=== PATIENT | female | born 1995 | race Hispanic/Latino ===

== ENCOUNTER 2021-03-25 19:14 | Emergency (ER) | payer BC ==
--- OUTSIDE RECORDS SUMMARY | 2021-03-25 19:17 | XMS REPORT | Continuity of Care Document ---
:1995 Author Organization [facility] t Address [address] [place] [address] Care Team Providers Name Role Phone Radiology Attending Clinician Unavailable Problems This patient has no known problems. Allergies, Adverse Reactions, Alerts This patient has no known allergies or adverse reactions. Medications This patient has no known medications. Procedures This patient has no known procedures. Encounters Start End Encounter Admission Attending Care Care Encounter Source Date/Time Date/Time Type Type Clinicians Facility Department ID 2021-02-05 2021-02-05 [facility] Radiology [facility] [id number] 17:15:00 23:59:00 Encounter [place] [id number] [place] [id number] [place] [id number] 2020-03-25 2020-03-25 Emergency E [facility]BL [id number] [facility]BL 16:40:00 16:40:00 2018-01-18 2018-01-18 [facility] [id number] Access 00:00:00 00:00:00 H, PROVIDER Oscar warren 2018-01-05 2018-01-05 [facility] [id number] Access 00:00:00 00:00:00 H, PROVIDER Oscar warren 2017-12-27 2017-12-27 [facility] [id number] Access 00:00:00 00:00:00 H, PROVIDER Oscar warren 2017-09-19 2017-09-19 [facility] [id number] Access 00:00:00 00:00:00 H, PROVIDER Oscar warren 2017-03-11 2017-03-11 [facility] [id number] Access 00:00:00 00:00:00 H, PROVIDER Oscar warren 2017-02-23 2017-02-23 [facility] [id number] Access 00:00:00 00:00:00 H, PROVIDER Oscar warren 2017-02-22 2017-02-22 [facility] [id number] Access 00:00:00 00:00:00 H, PROVIDER Oscar warren Results This patient has no known results.
[2021-03-25 20:13] LABS: Urine Blood Negative (Negative); Urine Glucose Negative (Negative); Urine Protein Negative (Negative)
[2021-03-25 20:23] LABS: Absolute Lymphocytes (CBC) 3.7 K/uL (0.7-4.9); Basophils % 0.3 % (0-1.3); Hematocrit 32.6 % (36.0-45.0); Lymphocytes % 27.7 % (15.3-44.8); MPV 6.8 fL (7.6-11.3); RBC Red Blood Cell Count 3.86 M/uL (3.86-4.86)
[2021-03-25 20:39] LABS: ALT/SGPT 18 U/L (12-78); AST/SGOT 16 U/L (15-37); Albumin 2.4 g/dL (3.4-5.0); Alkaline Phosphatase 56 U/L (45-117); BUN Blood Urea Nitrogen 3 mg/dL (7-18); Bicarbonate 21 mmol/L (21-32); Bilirubin Direct < 0.1 mg/dL (0-0.2); Bilirubin Total 0.1 mg/dL (0.2-1.0); Glucose Level 88 mg/dL (74-106); Lipase 52 U/L (73-393); Potassium 3.5 mmol/L (3.5-5.1); Protein, Total 6.6 g/dL (6.4-8.2); Sodium Level 138 mmol/L (136-145)
--- NOTE | 2021-03-25 20:53 | RAD REPORT ---
EXAM DESCRIPTION: US - Abdomen Exam Limited - 03/25/2021 8:31 pm CLINICAL HISTORY: ABD PAIN COMPARISON: No comparisons FINDINGS: The gallbladder demonstrates no gallstones. No pericholecystic fluid or gallbladder wall t hickening. The common bile duct is normal measuring 2 mm. The liver demonstrates no findings of intrahepatic biliary dilatation. IMPRESSION: Unremarkable examination.
[2021-03-25 21:03] LABS: Urine Bacteria <20 /HPF (<20); Urine RBC <5 /HPF (NONE SEEN)
--- NOTE | 2021-03-25 21:03 | ER ---
Nurse's Notes [facility] Name: Mariya Albert Age: 25 yrs Sex: Female : 1995 Arrival Date: 03/25/2021 Time: 19:17 Bed 13 Private MD: Diagnosis: Upper abdominal pain, unspecified Presentation: 03/25 19:35 Chief complaint: Patient states: 14 wks . RUQ pain x 3 days. Now pain radiates ca1 to the back. Reports N/V that is not like nausea. Denies diarrhea. Coronavirus screen: Client denies travel out of the [place] in the last 14 days. nausea, vomiting. Client presents with at least one sign or symptom that may indicate coronavirus-19. Standard/surgical mask placed on the client. Provider contacted for isolation considerations. Ebola Screen: Patient negative for fever greater than or equal to 101.5 degrees Fahrenheit, and additional compatible Ebola Virus Disease symptoms Patient denies exposure to infectious person. Patient denies travel to an Ebola-affected area in the 21 days before illness onset. No symptoms or risks identified at this time. Initial Sepsis Screen: Does the patient meet any 2 criteria? No. Patient's initial sepsis screen is negative. Does the patient have a suspected source of infection? No. Patient's initial sepsis screen is negative. Risk Assessment: Do you want to hurt yourself or someone else? Patient reports no desire to harm self or others. Onset of symptoms was March 25, 2021. 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 - Social history:: Smoking status: Patient denies any tobacco usage or history of. - Family history:: not pertinent. - Hospitalizations: : No recent hospitalization is reported. Screenin:09 Abuse screen: Denies threats or abuse. Denies injuries from another. Nutritional ad5 screening: No deficits noted. Tuberculosis screening: No symptoms or risk factors identified. Fall Risk None identified. Assessment: 20:09 General: Appears uncomfortable, Behavior is calm, cooperative, appropriate for age. ad5 Pain: Complains of pain in right upper quadrant. Neuro: Level of Consciousness is awake, alert, obeys commands, Oriented to person, place, time. Cardiovascular: Capillary refill < 3 seconds Patient's skin is warm and dry. Rhythm is regular. Respiratory: Airway is patent Respiratory effort is even, unlabored, Respiratory pattern is regular, symmetrical. GI: Abdomen is round Reports upper abdominal pain, nausea, pt reports RUQ pain x 3 days, denies exacerbating or relieving factors; est 14 wks gestation, reports nausea at baseline. : No deficits noted. No signs and/or symptoms were reported regarding the genitourinary system. Derm: Skin is pink, warm \T\ dry. 21:19 Reassessment: Patient appears in no apparent distress at this time. Patient and/or ad5 family updated on plan of care and expected duration. Pain level reassessed. Patient is alert, oriented x 3, equal unlabored respirations, skin warm/dry/pink. Vital Signs: 19:35 BP 112 / 72; Pulse 91; Resp 18 S; Temp 97.8(TE); Pulse Ox 99% on R/A; Weight 66.68 kg ca1 (R); Height 4 ft. 9 in. (144.78 cm) (R); Pain 6/10; 20:12 BP 131 / 58; Pulse 101; Resp 18 S; Pulse Ox 98% on R/A; ad5 21:20 BP 120 / 75; Pulse 88; Resp 16 S; Pulse Ox 98% on R/A; ad5 19:35 Body Mass Index 31.81 (66.68 kg, 144.78 cm) ca1 ED Course: 19:17 Patient arrived in ED. bp1 19:43 Junior Kam MD is Attending Physician. rn 19:44 Triage completed. ca1 19:44 Arm band placed on right wrist. ca1 19:49 Terrence Muhammad is Primary Nurse. ad5 20:09 US Abdomen Limited Sent. ad5 20:11 No provider procedures requiring assistance completed. Initial lab(s) drawn, by ri, ad5 sent to lab. Urine collected: clean catch specimen, clear. Inserted saline lock: 20 gauge in right antecubital area, using aseptic technique. Blood collected. 20:12 Patient has correct armband on for positive identification. Placed in gown. Bed in low ad5 position. Call light in reach. Side rails up X 1. Pulse ox on. NIBP on. Door closed. Noise minimized. Warm blanket given. 20:31 US Abdomen Limited In Process Unspecified. EDMS 21:21 IV discontinued, intact, bleeding controlled, No redness/swelling at site. Pressure ad5 dressing applied. Administered Medications: 21:19 Drug: GI Cocktail without - (Maalox Suspension 30 ml, Lidocaine Liquid 2 % 15 ad5 ml) Route: PO; Outcome: 21:03 Discharge ordered by . rn 21:20 Discharged to home ambulatory, with significant other. ad5 21:20 Condition: stable 21:20 Discharge instructions given to patient, Instructed on discharge instructions, follow up and referral plans. medication usage, Demonstrated understanding of instructions, follow-up care, medications. 21:21 Patient left the ED. ad5 Signatures: Dispatcher [employer] EDMS Junior Kam MD MD rn Gricelda, NIC Tapia RN Tiki Martinez Andrea ad5 Corrections: (The following items were deleted from the chart) 20:11 20:09 GI: Abdomen is round Reports upper abdominal pain, nausea, pt reports RUQ pain x ad5 3 days, denies exacerbating or relieving factors; est 17 wks gestation, reports nausea at baseline ad5
--- NOTE | 2021-03-25 21:04 | EDPHYS ---
Physician Documentation [facility] Name: Mariya Albert Age: 25 yrs Sex: Female : 1995 Arrival Date: 03/25/2021 Time: 19:17 Bed 13 Private MD: ED Physician Junior Kam HPI: 03/25 20:55 This 25 yrs old Female presents to ER via Ambulatory with complaints of Flank rn Pain, Nausea/Vomiting, Back Pain, +14 Weeks Preg.. 20:55 The patient presents with abdominal pain in the epigastric area, in the right upper rn quadrant. 20:55 Onset: The symptoms/episode began/occurred 3 day(s) ago. The symptoms do not radiate. rn Associated signs and symptoms: Pertinent positives: nausea and vomiting, Pertinent negatives: blood in stools, fever, shortness of breath. The symptoms are described as crampy, intermittent. Modifying factors: The symptoms are alleviated by nothing, the symptoms are aggravated by touching the area. Severity of pain: At its worst the pain was moderate in the emergency department the pain is unchanged. The patient has not experienced similar symptoms in the past. Reports 14 weeks , experiencing RUQ abd pain and nausea/vomiting for 3 days now, no fever, no blood in emesis, no vaginal bleeding or lower abd pain. No known hx of gallstones. Not worse with eating or food. . 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 - Social history:: Smoking status: Patient denies any tobacco usage or history of. - Family history:: not pertinent. - Hospitalizations: : No recent hospitalization is reported. ROS: 20:55 Constitutional: Negative for fever, chills, and weight loss, Eyes: Negative for injury, rn pain, redness, and discharge, Neck: Negative for injury, pain, and swelling, Cardiovascular: Negative for chest pain, palpitations, and edema, Respiratory: Negative for shortness of breath, cough, wheezing, and pleuritic chest pain, Abdomen/GI: +RUQ abd pain and nausea/vomiting Back: Negative for injury and pain, : Negative for injury, bleeding, discharge, and swelling, MS/Extremity: Negative for injury and deformity, Skin: Negative for injury, rash, and discoloration, Neuro: Negative for headache, weakness, numbness, tingling, and seizure. Exam: 20:55 Constitutional: This is a well developed, well nourished patient who is awake, alert, rn and in no acute distress. Head/Face: Normocephalic, atraumatic. Cardiovascular: Regular rate and rhythm. No pulse deficits. Respiratory: No increased work of breathing, no retractions or nasal flaring. Abdomen/GI: soft, mild RUQ tenderness, no epigastric tenderness, no RLQ tenderness, no peritoneal signs. Skin: Warm, dry with normal turgor. Normal color with no rashes, no lesions, and no evidence of cellulitis. MS/ Extremity: Pulses equal, no cyanosis. Neurovascular intact. Full, normal range of motion. Equal circumference. Neuro: Awake and alert, GCS 15 Vital Signs: 19:35 BP 112 / 72; Pulse 91; Resp 18 S; Temp 97.8(TE); Pulse Ox 99% on R/A; Weight 66.68 kg ca1 (R); Height 4 ft. 9 in. (144.78 cm) (R); Pain 6/10; 20:12 BP 131 / 58; Pulse 101; Resp 18 S; Pulse Ox 98% on R/A; ad5 21:20 BP 120 / 75; Pulse 88; Resp 16 S; Pulse Ox 98% on R/A; ad5 19:35 Body Mass Index 31.81 (66.68 kg, 144.78 cm) ca1 MDM: 19:43 Patient medically screened. rn 20:58 Differential diagnosis: cholecystitis, Cholelithiasis, gastritis, gastroesophageal rn reflux disease, non-specific abd pain, pancreatitis, Peptic Ulcer Disease, urinary tract infection. Data reviewed: vital signs, nurses notes, lab test result(s), radiologic studies, ultrasound, and as a result, I will discharge patient. Counseling: I had a detailed discussion with the patient and/or guardian regarding: the historical points, exam findings, and any diagnostic results supporting the discharge/admit diagnosis, lab results, radiology results, the need for outpatient follow up, to return to the emergency department if symptoms worsen or persist or if there are any questions or concerns that arise at home. Response to treatment: the patient's symptoms have mildly improved after treatment, and as a result, I will discharge patient. Special discussion: I discussed with the patient/guardian in detail that at this point there is no indication for admission to the hospital. It is understood, however, that if the symptoms persist or worsen the patient needs to return immediately for re-evaluation. Based on the history and exam findings, there is no indication for further emergent testing or inpatient evaluation. I discussed with the patient/guardian the need to see the OB Gyne specialist for further evaluation of the symptoms. ED course: Return precautions given, u/s neg for acute gallbladder pathology, talked to her about limitations of evaluation during and if symptoms worsen will need MRI abdomen or repeat u/s of gallbladder. For now recommend TUMs and diet modification.. 03/25 19:50 Order name: Basic Metabolic Panel; Complete Time: 20:49 03/25 19:50 Order name: CBC with Diff; Complete Time: 20:49 03/25 19:50 Order name: Hepatic Function; Complete Time: 20:49 03/25 19:50 Order name: Lipase; Complete Time: 20:49 03/25 19:50 Order name: Urine Microscopic Only; Complete Time: 21:04 03/25 20:13 Order name: Urine Dipstick-Ancillary; Complete Time: 20:49 EDMS 03/25 19:50 Order name: IV Saline Lock; Complete Time: 20: 03/25 19:50 Order name: Labs collected and sent; Complete Time: 20:09 03/25 19:50 Order name: US Abdomen Limited; Complete Time: 21:04 03/25 19:50 Order name: Urine Dipstick-Ancillary (obtain specimen) 03/25 20:15 Order name: Urine --Ancillary (enter results) 03/25 20:16 Order name: Urine --Ancillary; Complete Time: 20:49 EDMS Administered Medications: 21:19 Drug: GI Cocktail without - (Maalox Suspension 30 ml, Lidocaine Liquid 2 % 15 ad5 ml) Route: PO; Disposition: 03/25/21 21:03 Discharged to Home. Impression: Upper abdominal pain, unspecified. - Condition is Stable. - Discharge Instructions: Abdominal Pain, Adult, Abdominal Pain During , Pain Without a Known Cause. - Medication Reconciliation Form, Thank You Letter, Antibiotic Education, Prescription Opioid Use form. - Follow up: Private Physician; When: As needed; Reason: Recheck today's complaints, Re-evaluation by your physician. - Problem is new. - Symptoms have improved. Signatures: Dispatcher [employer] EDMS Junior Kam MD MD rn Acob, NIC Tapia RN Terrence Boyle ad5 Corrections: (The following items were deleted from the chart) 21: 21:03 03/25/2021 21:03 Discharged to Home. Impression: Upper abdominal pain, ad5 unspecified. Condition is Stable. Forms are Medication Reconciliation Form, Thank You Letter, Antibiotic Education, Prescription Opioid Use. Follow up: Private Physician; When: As needed; Reason: Recheck today's complaints, Re-evaluation by your physician. Problem is new. Symptoms have improved. rn
[2021-03-25] MEDS ORDERED: MAGNES/ALUMIN/SIMET 30ML UCUP ONE (21:34)
[2021-03-25] MEDS ORDERED: LIDOCAINE VISCOUS 2% SOLN 15 ML UDC ONE (21:34)
[2021-03-25 21:47] VITALS: TEMP 97.8
[2021-03-25 21:49] VITALS: O2SAT 98
[2021-03-25 21:50] VITALS: BP 120/75
== END 2021-03-25 21:21 | disposition home or self-care (01) ==
LOC: ER 19:14
DX: O26.891 Other specified pregnancy related conditions, first trimester (principal); Z3A.14 14 weeks gestation of pregnancy; Z88.0 Allergy status to penicillin
CPT/HCPCS: 36415; 76705; 80048; 80076; 81003; 81015; 81025; 83690; 85025

== ENCOUNTER 2023-03-01 13:37 | Emergency (ER) | payer BC ==
--- OUTSIDE RECORDS SUMMARY | 2023-03-01 13:50 | XMS REPORT | Continuity of Care Document ---
:1995 Author Organization [facility] t Address [address] [facility] Juan Pablo. [address] [place] [address] Care Team Providers Name Role Phone PCP, PATIENT DOES NOT HAVE A Primary Care Physician Unavaila ble Only, Ang Db Test Attending Clinician Unavailable Prince Shen MD Attending Clinician PRINCE SHEN Attending Clinician Unavailable Roxana Espinal Attending Clinician Unavailable Radiology Attending Clinician Unavailable RADIOLOGY Attending Clinician Unavailable ROXANA OREILLY Attending Clinician Unavailable PATTI ACOSTA Attending Clinician [phone] [facility], PROVIDER Attending Clinician Unavailable NURSE, NURSE Attending Clinician Unavailable EVELINA MOHAN Attending Clinician [phone] Roxana Espinal Admitting Clinician Unavailable Physician, No Primary or Family Admitting Clinician Unavaila ble Payers Payer Name Policy Type Policy Number Effective Date Expiration Date S ource Problems This patient has no known problems. Allergies, Adverse Reactions, Alerts Allergy Allergy Status Severity Reaction(s) Onset Inactive Treating Comm ents Source Name Type Date Date Clinician [place] DA Active U RASH 2020-10 [facility] 1-29 [facility] [place] DA Active U 2020-10 [facility] 0-08 [facility] [place] DA Active U RASH 2020-10 [facility] 0-08 [facility] [place] NO KNOWN Drug Active [facility] [place] [facility] Social History Social Habit Start Date Stop Date Quantity Comments Source Exposure to 2022-04-16 2022-04-26 Yes [facility] SARS-CoV-2 (event) 00:00:00 10:14:00 Medica l Branch Sex Assigned At [address] [facility] [place] 00:00:00 00:00:00 Medical Branch Smoking Status Start Date Stop Date Source Tobacco smoking consumption [facility] Medical unknown Branch Medications Ordered Filled Start Stop Current Ordering Indication Dosage Frequency Signature Comments Components Source Medication Medication Date Date Medication? Clinician (SIG) Name Name Miryam Calles No Insert 1 Acc essH 380A 380 3-29 Intrauteri ealth square mm 00:00: ne Device intrauterin 00 by e device Intrauteri ne route 1 for 10 years lovastatin No take 1 Acces sH 40 mg 6-02 tablet by ealth tablet 00:00: Oral route 00 with the evening meal 1 time per day for cholestero l telmisartan No take 1 [facility] 40 5-17 tablet by ealth mg-hydrochl 00:00: Oral route orothiazide 00 1 time per 12.5 mg day FROM tablet ALICIA Immunizations Ordered Filled Immunization Date Status Comments Sour e Immunization Name Name SARS-COV-2 COVID-19 2021-01-02 Completed Unive rsity of PFIZER VACCINE 00:00:00 [facility] SARS-COV-2 COVID-19 2020-12-12 Completed Unive rsity of PFIZER VACCINE 00:00:00 [facility] Vital Signs Vital Name Observation Time Observation Value Comments Source Body height 2018-01-18 09:08:00 55.00 [in_us] [facility] Patient Body Weight 2018-01-18 09:08:00 138.00 [lb_av] [facility] Systolic 2018-01-18 09:08:00 120 mm[Hg] [facility] Diastolic 2018-01-18 09:08:00 78 mm[Hg] [facility] Heart Beat 2018-01-18 09:08:00 75 /min [facility] Body Temperature 2018-01-18 09:08:00 98.20 [degF] [facility] Respiratory Rate 2018-01-18 09:08:00 18 /min [facility] Body mass index 2018-01-18 09:08:00 32.10 kg/m2 [facility] Body height 2018-01-05 09:14:00 55.00 [in_us] [facility] Body Weight 2018-01-05 09:14:00 134.60 [lb_av] [facility] Systolic 2018-01-05 09:14:00 103 mm[Hg] [facility] Diastolic 2018-01-05 09:14:00 51 mm[Hg] [facility] Heart Beat 2018-01-05 09:14:00 67 /min [facility] Body Temperature 2018-01-05 09:14:00 97.20 [degF] [facility] Respiratory Rate 2018-01-05 09:14:00 16 /min [facility] Body mass index 2018-01-05 09:14:00 31.30 kg/m2 [facility] Body height 2017-12-27 11:21:00 55.00 [in_us] [facility] Patient Body Weight 2017-12-27 11:21:00 137.60 [lb_av] [facility] Systolic 2017-12-27 11:21:00 104 mm[Hg] [facility] Diastolic 2017-12-27 11:21:00 58 mm[Hg] [facility] Heart Beat 2017-12-27 11:21:00 75 /min [facility] Body Temperature 2017-12-27 11:21:00 98.80 [degF] [facility] Respiratory Rate 2017-12-27 11:21:00 18 /min [facility] Body mass index 2017-12-27 11:21:00 32.00 kg/m2 [facility] Body height 2017-03-11 10:02:00 55.00 [in_us] [facility] Patient Body Weight 2017-03-11 10:02:00 136.00 [lb_av] [facility] Systolic 2017-03-11 10:02:00 107 mm[Hg] [facility] Diastolic 2017-03-11 10:02:00 72 mm[Hg] [facility] Beat 2017-03-11 10:02:00 87 /min [facility] Body Temperature 2017-03-11 10:02:00 98.60 [degF] [facility] Respiratory Rate 2017-03-11 10:02:00 18 /min [facility] Body mass index 2017-03-11 10:02:00 31.60 kg/m2 [facility] Body height 2017-02-22 11:03:00 55.00 [in_us] [facility] Patient Body Weight 2017-02-22 11:03:00 133.20 [lb_av] [facility] Systolic 2017-02-22 11:03:00 115 mm[Hg] [facility] Diastolic 2017-02-22 11:03:00 75 mm[Hg] [facility] 2017-02-22 11:03:00 75 /min [facility] Body Temperature 2017-02-22 11:03:00 98.50 [degF] [facility] Respiratory Rate 2017-02-22 11:03:00 18 /min [facility] Body mass index 2017-02-22 11:03:00 31.00 kg/m2 [facility] Procedures Procedure Date / Time Performed Performing Clinician [facility] e [id number] 2021-09-15 00:00:00 [facility] Encounters Start End Encounter Admission Attending Care Care Encounter Source Date/Time Date/Time Type Type Clinicians Facility Department ID 2022-04-26 2022-04-26 Laboratory Only, Ang Db Test [facility] [id number] Univers 10:45:00 10:45:00 Only Prince Shen [facility] [id number] [facility] [id number] Leonardo as ARMIN?BLEA [id number] [address] MEDICAL OFFICE BUILDING 2022-04-26 2022-04-26 Outpatient R [facility] [id number] Univers 10:45:00 10:24:25 [facility] 2021-09-15 2021-09-18 Inpatient Roxana Black [facility] OBPP [id number] [facility] 05:54:00 13:25:[address] [place] [address] s [facility] 2021-09-11 2021-09-12 Emergency EM Roxana Espinal [facility] KOBY F000 [id number] [facility] 19:28:00 00:33:00 [facility] [place] 2021-09-07 2021-09-08 Emergency EM Roxana Espinal [facility] KOBY F000 [id number] [facility] 23:38:00 02:10:00 24 [facility] [place] 2021-07-17 2021-07-17 Inpatient EM Roxana Espinal [facility] KOBY F000 [id number] [facility] 01:45:00 04:44:00 41 [facility] [place] 2021-05-07 2021-05-07 Outpatient EL [facility] RAD[facility] F00 [id number] [facility] 13:32:00 13:32:00 48 [facility] [place] 2021-02-05 2021-02-05 Hospital Radiology [facility] [id number] 17:15:00 23:59:00 Encounter Jamel [id number] [place] [id number] [place] [id number] 2021-02-05 2021-02-05 Outpatient [facility] [id number] Univers 00:00:00 00:00:00 ity [facility] 2020-03-25 2020-03-25 Emergency E DENILSON, BL BL [id number] BL 16:40:00 23:48:00 ROXANA 2018-01-18 2018-01-18 Outpatient [facility] [id number] Access 00:00:00 00:00:00 H, PROVIDER [facility]gie [facility] 2018-01-18 2018-01-18 Outpatient ACOSTA, [facility] [id number] [facility] 00:00:00 00:00:00 PATTI e2-4id1-82v [id number] [facility] [id number] 0f4 [id number] 2018-01-18 2018-01-18 Outpatient [facility] [id number] [facility] 00:00:00 00:00:00 H, PROVIDER [id number] 0d9-45 e8-9 ealt [id number] 0f4 [id number] 2018-01-05 Outpatient [facility] [id number] [facility] 00:00:00 00:00:00 H, PROVIDER [facility] 2018-01-05 2018-01-05 Outpatient [facility] [id number] [facility] 00:00:00 00:00:00 H, PROVIDER e2-9nd0-36v 50c-43 39-8 ealth [id number] 0f4 [id number] 2018-01-05 2018-01-05 Outpatient ACOSTA, [facility] [id number] [facility] 00:00:00 00:00:00 PATTI kyra-4mj2-95b [id number]-[id number] ealt [id number] 0f4 [id number] 2017-12-27 2017-12-27 Outpatient [facility] [id number] [facility] 00:00:00 00:00:00 H, PROVIDER [facility] 2017-12-27 2017-12-27 Outpatient [facility] [id number] [facility] 00:00:00 00:00:00 H, PROVIDER e2-3ah1-76k 052-4c 1c-9 ealth [id number]-[id number] 0f4 [id number] 2017-12-27 2017-12-27 Outpatient NURSE, [facility] [id number] [facility] 00:00:00 00:00:00 NURSE e2-7sd9-49j i7i-68a9-w ealth [id number] 0f4 [id number] 1558-03-20 2017-12-27 Outpatient ACOSTA, [facility] [id number] [facility] 00:00:00 00:00:00 PATIT rae-7pb7-75z [id number] ealt [id number] 0f4 feabb3 2017-10-07 2017-10-07 Outpatient NURSE, [facility] [id number] [facility] 00:00:00 00:00:00 NURSE e2-3bg4-85z [id number]-[id number]-8 [facility] [id number] 0f4 [id number] 2017-09-19 2017-09-19 Outpatient [facility] [id number] [facility] 00:00:00 00:00:00 H, PROVIDER maggie [place] 2017-09-19 2017-09-19 Outpatient NURSE, [facility] [id number] [facility] 00:00:00 00:00:00 NURSE e2-1yy1-80x v0r-[id number] [facility] [id number] 0f4 [id number] 2017-09-19 2017-09-19 Outpatient [facility] [id number] [facility] 00:00:00 00:00:00 H, PROVIDER e2-6km8-25d da3-45 9b-9 [facility] [id number] [id number] 0f4 [id number] 2017-03-15 2017-03-15 Outpatient OMORI, [facility] [id number] [facility] 00:00:00 00:00:00 EVELINA 22-4926-a4f 7y1-5cxc- 9 ealt [id number] juan jose [id number] 2017-03-11 2017-03-11 Outpatient [facility] [id number] [facility] 00:00:00 00:00:00 H, PROVIDER maggie [place] 2017-03-11 2017-03-11 Outpatient [facility] [id number] [facility] 00:00:00 00:00:00 H, PROVIDER kyra-6qu6-86z 88a-47 e6-a ealt [id number] 0f4 [id number] 2017-03-11 2017-03-11 Outpatient OMORI, [facility] [id number] [facility] 00:00:00 00:00:00 EVELINA e2-1fl3-36s 53a-43a0- a ealt [id number] 0f4 e8bcfc 2017-03-11 2017-03-11 Outpatient OMORI, [facility] [id number] [facility] 00:00:00 00:00:00 EVELINA 22-4926-a4f [id number] ealt [id number] juan jose [id number] 2017-02-23 2017-02-23 Outpatient [facility] [id number] [facility] 00:00:00 00:00:00 H, PROVIDER [facility] 2017-02-23 2017-02-23 Outpatient [facility] [id number] [facility] 00:00:00 00:00:00 H, PROVIDER e2-5ut2-85g fc2-4f cf-8 ealt 0-[id number] 0f4 [id number] 2017-02-23 2017-02-23 Outpatient [facility] [id number] [facility] 00:00:00 00:00:00 e2-9ki8-16x erika-47bd-9 ealt 0-[id number] 0f4 [id number] 2017-02-23 2017-02-23 Outpatient OMORI, [facility] [id number] [facility] 00:00:00 00:00:00 EVELINA 22-4926-a4f l83-92h3- 8 ealt [id number] juan jose [id number] 2017-02-22 2017-02-22 Outpatient OMORI, [facility] [id number] [facility] 11:03:00 11:03:00 EVELINA 22-4926-a4f 97c-430c- 8 [facility] [id number] juan jose d4c04c 2017-02-22 2017-02-22 Outpatient [facility] [id number] [facility] 00:00:00 00:00:00 H, PROVIDER [facility] 2017-02-22 2017-02-22 Outpatient [facility] [id number] [facility] 00:00:00 00:00:00 H, PROVIDER e2-8vf4-78j e31-48 62-a [facility] 0-[id number] [id number] 0f4 [id number] Results Test Description Test Time Test Comments Results Result Comments Source CBC W/AUTO DIFF 2021-09-16 20:10:00 Test Item Value Reference Range Interpretation Comme nts WHITE BLOOD CELL (test code = 11.5 K/mm3 6.5-12.3 WBC) RED BLOOD CELL (test code = RBC) 3.37 M/mm3 3.51-4.69 L HEMOGLOBIN (test code = HGB) 9.3 g/dL 10.1-13.8 L Results verified by repeat analysis HEMATOCRIT (test code = HCT) 28.3 % 32.5-41.8 L Results verified by repeat analysis MEAN CELL VOLUME (test code = 84.0 fL 84.6-96.6 L MCV) MEAN CELL HGB (test code = MCH) 27.6 pg 27.3-33.9 N MEAN CELL HGB CONCETRATION (test 32.9 gm/dL 32.0-34.2 N code = MCHC) RED CELL DISTRIBUTION WIDTH (test 19.9 % 12.2-16.3 H code = RDW) PLATELET COUNT (test code = PLT) 164 K/mm3 134-363 N MEAN PLATELET VOLUME (test code = 9.6 fL 9.2-12.7 N MPV) NEUTROPHIL % (test code = NT%) 61.1 % 57.9-77.3 N LYMPHOCYTE % (test code = LY%) 29.7 % 14.5-29.7 N MONOCYTE % (test code = MO%) 6.4 % 3.6-10.2 N EOSINOPHIL % (test code = EO%) 1.2 % 0.0-3.0 N BASOPHIL % (test code = BA%) 0.2 % 0.1-0.9 N NEUTROPHIL # (test code = NT#) 7.0 K/mm3 LYMPHOCYTE # (test code = LY#) 3.4 K/mm3 MONOCYTE # (test code = MO#) 0.7 K/mm3 EOSINOPHIL # (test code = EO#) 0.14 K/mm3 BASOPHIL # (test code = BA#) 0.0 K/mm3 RBC MORPHOLOGY REQUIRED (test NORMAL NORMAL code = RBCM) PLATELET MORPHOLOGY REQUIRED NORMAL NORMAL (test code = PLTMR) HGB [id number] 06:46:00 Test Item Value Reference Range Interpretation Comments HEMOGLOBIN (test code = 5.4 g/dL 10.1-13.8 LL RESU LTS CALLED TO HGB) YOLI MARTÍNEZ EAD BACK & CONFIRME D? YESBY [id number] 09/16/21 0646Re sults verified by rep eat analysis HEMATOCRIT (test code = 17.3 % 32.5-41.8 LL RESU LTS CALLED TO HCT) YOLI MARTÍNEZ EAAngel BACK & CONFIRME D? YESBY [id number] 09/16/21 0646Re sults verified by rep eat analysis HGB [id number] 17:29:00 Test Item Value Reference Range Interpretation Comments HEMOGLOBIN (test code = HGB) 7.6 g/dL 10.1-13.8 L HEMATOCRIT (test code = HCT) 24.5 % 32.5-41.8 L AG HEPATITIS B [id number] 13:13:00 Test Item Value Reference Range Interpretation Comments AG HEPATITIS B SURFACE (test code NONREACTIVE NONREACTIVE = HBSAG) AB HEPATITIS C [id number] 13:13:00 Test Item Value Reference Range Interpretation Comments AB HEPATITIS C (test code = NONREACTIVE NONREACTIVE HCVAB) SIGNAL TO CUTOFF (test code = <0.02 <0.80 N CUTOFF) RUBELLA [id number] 13:13:00 Test Item Value Reference Range Interpretation Comments RUBELLA SCREEN 5.0 IUnit/ml Samples with a value (test code = RUBSC) >= 5.0 I Units/mL and <=9.9 IUnits/mL are considered equi vocal for IgG antibod ies to rubella virus. Obtain a new specimen and retest. AB [id number] 13:13:00 Test Item Value Reference Range Interpretation Comments AB TREPONEMA (test code = TREPAB) NONREACTIVE NONREACTIVE AB HIV 1 13:13:00 Test Item Value Reference Range Interpretation Comments AB HIV 1 2 (test NONREACTIVE NONREACTIVE [id number]) 4th Gen HIV Ag/Ab Combo Screen COVID 19 Asymptomatic IH [id number] 12:54:00 Test Item Value Reference Range Interpretation Comments COVID 19 NEGATIVE NEGATIVE This test has b een Asymptomatic IH AG authorize d only for the (test code = detection ofpro teins from COVNONPUIAG) SARS-CoV-2, not for any other viruses orpathogens. Ne gative results should be treated as presumptive andconfirmed wi th a molecular assay , if necessary for patientmanageme nt. Negative result s do not rule out COVID- 19 andshould not b e used as the sole basis for treatment orpat ient management deci sions, including infec tion controldecision s. Negative result s should be considered i n thecontext of a patient's recent exposure s, history and thepresence of clinical signs and symptoms consis tent withCOVID-19. T his test has not been FD A cleared or approved; th e test hasbeen authori zed by FDA under an Emerge ncy Use Authorization(E UA) for use by austyn grajeda certified under the CLIA thatmeet the re quirements to perform mode rate, high or waivedcomple xity tests. This carey t is authorized for use at thePoint of Car e (POC), i.e., in patien t care settingsoperati ng under a CLIA Certificat e of Waiver, Certifi yuri ofCompliance, o r Certificate of Accreditation. This test is only authori zed for the duration of thedeclaration that circumstances e xist justifying theauthorizatio n of emergency use o f in vitro diagnostic test sfor detection and/o r diagnosis of CO VID-19 under Xvnljhj63 4(b)(1) of the Act, 21 U.S .C. 360bbb-3(b)(1), unless theauthorizatio n is terminated or r evoked sooner. COMPREHENSIVE METABOLIC [id number] 12:20:00 Test Item Value Reference Range Interpretation Comments SODIUM (test code = NA) 137 mEq/L 135-145 N POTASSIUM (test code = K) 4.0 mEq/L 3.5-5.0 N CHLORIDE (test code = CL) 104 mEq/L 100-115 N CARBON DIOXIDE (test code = CO2) 22 mEq/L 22-31 N ANION GAP (test code = GAP) 14.90 10-20 N GLUCOSE (test code = GLU) 64 mg/dL 65-110 L BLOOD UREA NITROGEN (test code = 5 mg/dL 7-18 L BUN) GLOMERULAR FILTRATION RATE (test 120 ml/min >60 N code = GFR) CREATININE (test code = CREAT) 0.6 mg/dL 0.5-1.0 N TOTAL PROTEIN (test code = PROT) 5.2 gm/dL 6.3-8.2 L ALBUMIN (test code = ALB) 1.9 gm/dL 3.4-4.8 L CALCIUM (test code = CA) 7.9 mg/dL 8.4-10.2 L BILIRUBIN TOTAL (test code = 0.2 mg/dL 0.2-1.0 N BILT) SGOT/AST (test code = AST) 16 units/L 15-37 N SGPT/ALT (test code = ALT) 12 units/L 12-78 N ALKALINE PHOSPHATASE TOTAL (test 228 units/L 46-116 H code = ALKP) CBC W/AUTO [id number] 11:53:00 Test Item Value Reference Range Interpretation Comments WHITE BLOOD CELL (test code = WBC) 6.4 K/mm3 6.5-12.3 L RED BLOOD CELL (test code = RBC) 3.30 M/mm3 3.51-4.69 L HEMOGLOBIN (test code = HGB) 7.8 g/dL 10.1-13.8 L HEMATOCRIT (test code = HCT) 25.2 % 32.5-41.8 L MEAN CELL VOLUME (test code = MCV) 76.4 fL 84.6-96.6 L MEAN CELL HGB (test code = MCH) 23.6 pg 27.3-33.9 L MEAN CELL HGB CONCETRATION (test 31.0 gm/dL 32.0-34.2 L code = MCHC) RED CELL DISTRIBUTION WIDTH (test 16.5 % 12.2-16.3 H code = RDW) PLATELET COUNT (test code = PLT) 189 K/mm3 134-363 N MEAN PLATELET VOLUME (test code = 9.7 fL 9.2-12.7 N MPV) NEUTROPHIL % (test code = NT%) 58.6 % 57.9-77.3 N LYMPHOCYTE % (test code = LY%) 30.9 % 14.5-29.7 H MONOCYTE % (test code = MO%) 6.6 % 3.6-10.2 N EOSINOPHIL % (test code = EO%) 3.1 % 0.0-3.0 H BASOPHIL % (test code = BA%) 0.3 % 0.1-0.9 N NEUTROPHIL # (test code = NT#) 3.8 K/mm3 LYMPHOCYTE # (test code = LY#) 2.0 K/mm3 MONOCYTE # (test code = MO#) 0.4 K/mm3 EOSINOPHIL # (test code = EO#) 0.20 K/mm3 BASOPHIL # (test code = BA#) 0.0 K/mm3 RBC MORPHOLOGY REQUIRED (test code NORMAL NORMAL = RBCM) PLATELET MORPHOLOGY REQUIRED (test NORMAL NORMAL code = PLTMR) URINALYSIS [id number] 23:16:00 Test Item Value Reference Range Interpretation Comments UA COLOR (test code = COLU) YELLOW YELLOW UA APPEARANCE (test code = CLOUDY CLEAR A APPU) UA GLUCOSE DIPSTICK (test code NEGATIVE NEG = DGLUU) UA BILIRUBIN DIPSTICK (test NEGATIVE NEG code = BILU) UA KETONE DIPSTICK (test code NEGATIVE NEG = KETU) UA SPECIFIC GRAVITY (test code 1.018 1.001-1.035 N = SGU) UA BLOOD DIPSTICK (test code = NEG NEG OSORIO) UA PH DIPSTICK (test code = 6.0 5-9 GUILHERME) UA PROTEIN DIPSTICK (test code 1+ NEG A = PROU) UA UROBILINIOGEN DIPSTICK NEGATIVE mg/dL NEG (test code = URO) UA NITRITE DIPSTICK (test code NEG NEG = ELENA) UA LEUKOCYTE ESTERASE DIPSTICK 3+ NEG A (test code = LEUU) UA WBC (test code = WBCU) 6-10 #/hpf NONE SEEN A UA RBC (test code = RBCU) 3-5 #/hpf NONE SEEN A UA EPITHELIAL CELLS (test code MANY #/HPF RARE-FEW A = EPIU) UA BACTERIA (test code = BACU) RARE /HPF RARE-FEW UA MUCUS (test code = MUCU) RARE NONE SEEN COMPREHENSIVE METABOLIC [id number] 22:11:00 Test Item Value Reference Range Interpretation Comments SODIUM (test code = NA) 138 mEq/L 135-145 N POTASSIUM (test code = K) 3.8 mEq/L 3.5-5.0 N CHLORIDE (test code = CL) 105 mEq/L 100-115 N CARBON DIOXIDE (test code = CO2) 24 mEq/L 22-31 N ANION GAP (test code = GAP) 12.60 10-20 N GLUCOSE (test code = GLU) 101 mg/dL 65-110 N BLOOD UREA NITROGEN (test code = 6 mg/dL 7-18 L BUN) GLOMERULAR FILTRATION RATE (test 86 ml/min >60 N code = GFR) CREATININE (test code = CREAT) 0.8 mg/dL 0.5-1.0 N TOTAL PROTEIN (test code = PROT) 5.2 gm/dL 6.3-8.2 L ALBUMIN (test code = ALB) 1.8 gm/dL 3.4-4.8 L CALCIUM (test code = CA) 7.5 mg/dL 8.4-10.2 L BILIRUBIN TOTAL (test code = 0.2 mg/dL 0.2-1.0 N BILT) SGOT/AST (test code = AST) 17 units/L 15-37 N SGPT/ALT (test code = ALT) 12 units/L 12-78 N ALKALINE PHOSPHATASE TOTAL (test 226 units/L 46-116 H code = ALKP) URIC [id number] 22:11:00 Test Item Value Reference Range Interpretation Comments URIC ACID (test code = URIC) 5.1 mg/dL 2.6-6.0 N CBC W/AUTO [id number] 21:50:00 Test Item Value Reference Range Interpretation Comments WHITE BLOOD CELL (test code = WBC) 6.4 K/mm3 6.5-12.3 L RED BLOOD CELL (test code = RBC) 3.36 M/mm3 3.51-4.69 L HEMOGLOBIN (test code = HGB) 8.0 g/dL 10.1-13.8 L HEMATOCRIT (test code = HCT) 25.5 % 32.5-41.8 L MEAN CELL VOLUME (test code = MCV) 75.9 fL 84.6-96.6 L MEAN CELL HGB (test code = MCH) 23.8 pg 27.3-33.9 L MEAN CELL HGB CONCETRATION (test 31.4 gm/dL 32.0-34.2 L code = MCHC) RED CELL DISTRIBUTION WIDTH (test 16.5 % 12.2-16.3 H code = RDW) PLATELET COUNT (test code = PLT) 206 K/mm3 134-363 N MEAN PLATELET VOLUME (test code = 9.7 fL 9.2-12.7 N MPV) NEUTROPHIL % (test code = NT%) 57.8 % 57.9-77.3 L LYMPHOCYTE % (test code = LY%) 32.3 % 14.5-29.7 H MONOCYTE % (test code = MO%) 6.3 % 3.6-10.2 N EOSINOPHIL % (test code = EO%) 3.0 % 0.0-3.0 N BASOPHIL % (test code = BA%) 0.3 % 0.1-0.9 N NEUTROPHIL # (test code = NT#) 3.7 K/mm3 LYMPHOCYTE # (test code = LY#) 2.1 K/mm3 MONOCYTE # (test code = MO#) 0.4 K/mm3 EOSINOPHIL # (test code = EO#) 0.19 K/mm3 BASOPHIL # (test code = BA#) 0.0 K/mm3 RBC MORPHOLOGY REQUIRED (test code NORMAL NORMAL = RBCM) PLATELET MORPHOLOGY REQUIRED (test NORMAL NORMAL code = PLTMR) UR PROTEIN/CREATININE [id number] 21:19:00 Test Item Value Reference Range Interpretation Comments UR PROTEIN RANDOM (test code = 65.4 mg/dL PROTU) UR CREATININE RANDOM (test 213.0 mg/dL code = CREATU) PROTEIN/CREATININE RATIO (test 307.0 mg/gcrea <200 H code = P/CRATIO) - [facility] BIO PH IA W/O [id number] 00:00:00 [facility] : 1995 Sex: F Patient Name: JOAN MCGINNIS Unit No: [id number] EXAMS: CPT CODE: [id number] US FET BIO PH IA W/O NST [id number] PROCEDURE INFORMATION: Exam: US Biophysical Profile Without Non-Stress Test Exam date and time: 09/11/2021 9:10 PM Age: 25 years old Clinical indication: Screening exam; Routine US screening of fetus; Third trimester (=28 weeks 0 days); ; Prior surgery; Surgery date: 6+ months; Surgery type: C/section; Additional info: Decreased movements TECHNIQUE: Imaging protocol: US biophysical profile without non-stress testing. COMPARISON: OT US PREG UT TRANSVAGINAL 05/07/2021 2:25 PM FINDINGS: Gestation: There is a single live intrauterine gestation. Presentation: There is vertex presentation. Placenta: There is a grade 2 fundal placenta. There is no placenta previa or placental abruption. Amniotic fluid index: The amniotic fluid index is 13 cm. The deepest vertical pocket is 4.2 cm. This is near the 50th percentile for gestational age. BIOPHYSICAL PROFILE: Breathin/2 Gross body movements: 2/2 tone: 2/2 Qualitative amniotic fluid: 2/2 Biophysical Profile Score: 8/8 MATERNAL ANATOMY: Cervix: The uterine cervix is obscured due to shadowing from the head. Urinary bladder: The maternal urinary bladder appears normal as visualized. IMPRESSION: 1. There lydia single live intrauterine gestation. 2. Normal biophysical profile score of 8/8. 3. There is vertexfetal presentation. 4. There is a grade 2 fundal placenta. There is no placenta previa or placentalabruption. 5. The amniotic fluid index is 13 cm. The deepest vertical pocket is 4.2 cm. This is nearthe 50th percentile for gestational age. 6. The uterine cervix is obscured due to shadowing from thefetal head. at 2206 Reported and signed by: Danish Harp DO [facility] NAME: JOAN MCGINNIS Radiology Department PHYS: Angelo Whittaker III, MD [address] : 1995 AGE: 25 SEX: F [place] [address] LOC: Edgardo.KOBY PHONE #: [phone] EXAM DATE: 09/11/2021 STATUS: REG ER FAX #: [phone] RAD NO: Page 1 Signed Report (CONTINUED) Patient Name: JOAN MCGINNIS Unit No: [id number] EXAMS: CPT CODE: [id number] US FET BIO PH IA W/O NST 56493 (Continued) CC: Roxana Espinal III, MD; Angelo Pacheco III, MDTechnologist: Wendy Recio RDMS Probe: Trnscrbd D/ (2206) GCD.CPS Orig Print D/T: S: 09/11/2021 (2206) [facility] NAME: JOAN MCGINNIS Radiology Department PHYS: Angelo Whittaker III, MD [address] : 1995 AGE: 25 SEX: F [place] [address] LOC: KyraKOBY PHONE #: [phone] EXAM DATE: 09/11/2021 STATUS: REG ER FAX #: [phone] RAD NO: Page 2 Signed Report Patient Name: JOAN MCGINNIS Unit No: [id number] EXAMS: CPT CODE: [id number] US FET BIO PH IA W/O NST 64339 (Continued) [facility] NAME: JOAN MCGINNIS Radiology Department PHYS: Angelo Whittaker III, MD [address] : 1995 AGE: 25 SEX: F [place], [place] [address] LOC: KyraKOBY PHONE #: [phone] EXAM DATE: 09/11/2021 STATUS: REG ER FAX #: [phone] RAD NO: Page 3 Signed ReportRUPTURE OF [id number] 00:40:00 Test Item Value Reference Range Interpretation Comments RUPTURE OF MEMBRANES (test code NON-RUPTURED = ROM) COMPREHENSIVE METABOLIC [id number] 03:32:00 Test Item Value Reference Range Interpretation Comments SODIUM (test code = NA) 138 mEq/L 135-145 N POTASSIUM (test code = 4.6 mEq/L 3.5-5.0 N SPECI MEN HEMOLYZED K) CHLORIDE (test code = 107 mEq/L 100-115 N CL) CARBON DIOXIDE (test 24 mEq/L 22-31 N code = CO2) ANION GAP (test code = 11.70 10-20 N GAP) GLUCOSE (test code = 83 mg/dL 65-110 N GLU) BLOOD UREA NITROGEN 4 mg/dL 7-18 L (test code = BUN) GLOMERULAR FILTRATION 426 ml/min >60 N RATE (test code = GFR) CREATININE (test code = 0.2 mg/dL 0.5-1.0 L CREAT) TOTAL PROTEIN (test 5.5 gm/dL 6.3-8.2 L code = PROT) ALBUMIN (test code = 2.1 gm/dL 3.4-4.8 L ALB) CALCIUM (test code = 7.9 mg/dL 8.4-10.2 L CA) BILIRUBIN TOTAL (test 0.3 mg/dL 0.2-1.0 N code = BILT) SGOT/AST (test code = 36 units/L 15-37 N AST) SGPT/ALT (test code = 9 units/L 12-78 L ALT) ALKALINE PHOSPHATASE 115 units/L 46-116 N TOTAL (test code = ALKP) CBC W/AUTO [id number] 03:18:00 Test Item Value Reference Range Interpretation Comments WHITE BLOOD CELL (test code = WBC) 7.8 K/mm3 6.5-12.3 N RED BLOOD CELL (test code = RBC) 3.47 M/mm3 3.51-4.69 L HEMOGLOBIN (test code = HGB) 9.3 g/dL 10.1-13.8 L HEMATOCRIT (test code = HCT) 29.3 % 32.5-41.8 L MEAN CELL VOLUME (test code = MCV) 84.4 fL 84.6-96.6 L MEAN CELL HGB (test code = MCH) 26.8 pg 27.3-33.9 L MEAN CELL HGB CONCETRATION (test 31.7 gm/dL 32.0-34.2 L code = MCHC) RED CELL DISTRIBUTION WIDTH (test 14.7 % 12.2-16.3 N code = RDW) PLATELET COUNT (test code = PLT) 228 K/mm3 134-363 N MEAN PLATELET VOLUME (test code = 8.8 fL 9.2-12.7 L MPV) NEUTROPHIL % (test code = NT%) 50.8 % 57.9-77.3 L LYMPHOCYTE % (test code = LY%) 36.1 % 14.5-29.7 H MONOCYTE % (test code = MO%) 8.5 % 3.6-10.2 N EOSINOPHIL % (test code = EO%) 3.9 % 0.0-3.0 H BASOPHIL % (test code = BA%) 0.3 % 0.1-0.9 N NEUTROPHIL # (test code = NT#) 4.0 K/mm3 LYMPHOCYTE # (test code = LY#) 2.8 K/mm3 MONOCYTE # (test code = MO#) 0.7 K/mm3 EOSINOPHIL # (test code = EO#) 0.30 K/mm3 BASOPHIL # (test code = BA#) 0.0 K/mm3 RBC MORPHOLOGY REQUIRED (test code NORMAL NORMAL = RBCM) PLATELET MORPHOLOGY REQUIRED (test NORMAL NORMAL code = PLTMR) URINALYSIS [id number] 02:35:00 Test Item Value Reference Range Interpretation Comments UA COLOR (test code = YELLOW YELLOW COLU) UA APPEARANCE (test CLEAR CLEAR code = APPU) UA GLUCOSE DIPSTICK NEGATIVE NEGATIVE (test code = DGLUU) UA BILIRUBIN DIPSTICK NEGATIVE NEGATIVE (test code = BILU) UA KETONE DIPSTICK NEGATIVE NEGATIVE (test code = KETU) UA SPECIFIC GRAVITY 1.015 1.001-1.035 N (test code = SGU) UA BLOOD DIPSTICK (test TRACE NEGATIVE A code = OSORIO) UA PH DIPSTICK (test 7.0 5-9 code = GUILHERME) UA PROTEIN DIPSTICK NEGATIVE NEGATIVE (test code = PROU) UA UROBILINIOGEN 0.2 EU/dL See_Comment [Automated message] DIPSTICK (test code = The sy stem which URO) generated this result transmit crystal reference range : <=1.0. The refe rence range was not u sed to interpret th is result as normal/abnormal . UA NITRITE DIPSTICK NEGATIVE NEGATIVE (test code = ELENA) UA LEUKOCYTE ESTERASE TRACE NEGATIVE A DIPSTICK (test code = LEUU) UA WBC (test code = 0-2 #/hpf NONE SEEN WBCU) UA EPITHELIAL CELLS RARE #/HPF RARE-FEW (test code = EPIU) UA RBC (test code = 0-2 #/hpf NONE SEEN RBCU) UA BACTERIA (test code RARE /HPF RARE-FEW = BACU) URINE SAMPLE: CLEAN CATCH- US PREG UT [id number] 00:00:00 [facility] : 1995 Sex: F Patient Name: JOAN MCGINNIS Unit No: [id number] EXAMS: CPT CODE: [id number] US PREG UT TRANSVAGINAL [id number] INFORMATION: Exam: US After First Trimester, Transabdominal and US , Transvaginal Exam date and time: 05/07/2021 2:25 PM Age: 25 years old Clinical indication: Screening exam; Routine US, uterus; Additional info: Anatomy LABS AND CLINICAL REPORTS: Last menstrual period start date: 12/15/2020 Gestational age by LMP: 20 weeks, 3 days Estimated due date by last menstrual period: 11/22/2020 TECHNIQUE: Imaging protocol: Real-time transabdominal obstetrical ultrasound of the maternal pelvis and a second or third trimester with image documentation. Transvaginal imaging was used for better evaluation of the fetus, adnexa, and/or cervix. COMPARISON: No relevant prior studies available. FINDINGS: Gestation: Single live intrauterine gestation. heart rate: heart rate of 151 bpm. presentation: Transverse presentation with head on the maternal right. Placenta: Posterior grade 1 placenta which terminates 1.6 cm from the internal cervical os. Amniotic fluid: Amniotic fluid is normal for gestational age. ANATOMY: midline falx: Normal lateral ventricles: Normal choroid plexus: Normal cerebellum: Normal cisternamagna: Normal upper lip and nose: Normal heart four-chamber view, heart size and position: Normal situs, four chamber view, RVOT/LVOT kidneys: Normal stomach: Normal urinary bladder: Normal spine: Normal Umbilical cord insertion site into the abdomen: Normal Umbilical cord vessel number: 3 vessel cord arms and hands: Visualized portions are normal Fetallegs and feet: Visualized portions are normal external genitalia: No visualized abnormalitiesBIOMETRY: Gestational age (AUA): 20 weeks, 5 days Estimated due date (AUA): 09/19/2021 Estimated weight: 376 g (13 oz) +/- 55 g [facility] NAME: JOAN MCGINNIS Radiology Department PHYS: Roxana Saavedra III, MD [address] : 1995 AGE: 25 SEX: F [place], [place] [address]GEHG NO: [id number] LOC: F.RAD PHONE #: [phone] EXAM DATE: 05/07/2021 STATUS: REG CLI FAX #: [phone] RAD NO: Page 1 Signed Report (CONTINUED) Patient Name: JOAN MCGINNIS Unit No: [id number]: CPT CODE: [id number] [facility] UT TRANSVAGINAL [address] (Continued) Estimated weight percentile: Not calculated at this gestational age Biparietal diameter: 4.8 cm (58.5) Head circumference: 18.7 cm (68.2) Abdominal circumference: 15.6 cm (20 weeks, 5 days) Humerus length: 3.3 cm (21 weeks, 0 days) Femur length: 3.4 cm (20 weeks, 5 days) biometric ratios: Within normal limits MATERNAL: U terus: No significant abnormality. Cervix: The cervix was not well visualized. The cervix measures 3.5 cm. Right adnexa: The right ovary measures 3 x 1.6 x 2.2 cm. Normal contour. Prominent right adnexal vessels. Left adnexa: The left ovary measures 2.4 x 2.5 x 1.3 cm. Normal contour. IMPRESSION: 1. Normal growth. 2. No visualized anomalies. 3. Low lying placenta terminates 1.6 cm from the internal cervical os. Recommend follow-up in the 3rd trimester. at 1610 Reported and signed by: Len Noble MD CC: Roxana Espinal III, MD Technologist: Kary Gonzalez, [facility] Probe: [id number] Trnscrbd D/ (1610) GCD.CPS Orig Print D/T: S: 05/07/2021 (1610) [facility] NAME: NÉSTORJOAN AGRAWAL RadiologyDepartment PHYS: Roxana Saavedra III, MD [address] : 1995 AGE: 25 SEX: Ed[place]ardo [place] [address] LOC: Edgardo.RAD PHONE #: [phone] EXAM DATE: 05/07/2021 STATUS: REG [place] #: [phone] RAD NO: Page 2 Signed Report Patient Name: JOAN MCGINNIS Unit No: [id number] EXAMS: CPT CODE: [id number] US PREG UT TRANSVAGINAL [address]2432 (Continued) [facility] NAME: DAIVDHILARYJOAN Boswell Radiology Department PHYS: Roxana Saavedra III, MD [address] : 1995 AGE: 25 SEX: F [place] [address] LOC: Edgardo.RAD PHONE #: [phone] EXAM DATE: STATUS: REG CLI FAX #: [phone] RAD NO: Page 3 Signed Report- US PREG AFTER [id number] 00:00:00 [facility] [place] [facility] : 1995 Sex: F Patient Name: JOAN MCGINNIS Unit No: [id number] EXAMS: CPT CODE: [id number] US PREG AFTER TRI 21123 PROCEDURE INFORMATION: Exam: US After First Trimester, Transabdominal and US , Transvaginal Exam date and time: 05/07/2021 2:25 PM Age: 25 years old Clinical indication: Screening exam; Routine US, uterus; Additional info: Anatomy LABS AND CLINICAL REPORTS: Last menstrual period start date: 12/15/2020 Gestational age by LMP: 20 weeks, 3 days Estimated due date by last menstrual period: 11/22/2020 TECHNIQUE: Imaging protocol: Real- time transabdominal obstetrical ultrasound of the maternal pelvis and a second or third trimester with image documentation. Transvaginal imaging was used for better evaluation of the fetus, adnexa, and/or cervix. COMPARISON: No relevant prior studies available. FINDINGS: Gestation: Single live intrauterine gestation. heart rate: heart rate of 151 bpm. presentation: Transverse presentation with head on the maternal right. Placenta: Posterior grade 1 placenta which terminates 1.6 cm from the internal cervical os. Amniotic fluid: Amniotic fluid is normal for gestational age. ANATOMY: midline falx: Normal lateral ventricles: Normal choroid plexus: Normal cerebellum: Normal cisterna magna: Normal upper lip and nose: Normal heart four-chamber view, heart size and position:Normal situs, four chamber view, RVOT/LVOT kidneys: Normal stomach: Normal urinarybladder: Normal spine: Normal Umbilical cord insertion site into the abdomen: Normal Umbilical cord vessel number: 3 vessel cord arms and hands: Visualized portions are normal legs and feet: Visualized portions are normal external genitalia: No visualized abnormalities BIO METRY: Gestational age (AUA): 20 weeks, 5 days Estimated due date (AUA): 09/19/2021 Estimated weight: 376 g (13 oz) +/- 55 g [facility] NAME: JOAN MCGINNIS Radiology DepartmentPHYS: Roxana Saavedra III, MD [address] : 1995 AGE: 25 SEX: Edgardo [place], [place] [address] LOC: EDUARDO PHONE #: [phone] EXAM DATE: 05/07/2021 STATUS: REG CLI FAX #: [phone] RAD NO: Page 1 Signed Report (CONTINUED) Patient Name: JOAN MCGINNIS Unit No: [id number] EXAMS: CPT CODE: [id number] US PREG AFTER 1ST TRI 74390 (Continued) Estimated weight percentile: Not calculated at this gestational age Biparietal diameter: 4.8 cm (58.5) Head circumference: 18.7 cm ( 68.2) Abdominal circumference: 15.6 cm (20 weeks, 5 days) Humerus length: 3.3 cm (21 weeks, 0 days) Femur length: 3.4 cm (20 weeks, 5 days) biometric ratios: Within normal limits MATERNAL: Uterus: No significant abnormality. Cervix: The cervix was not well visualized. The cervix measures 3.5 cm.Right adnexa: The right ovary measures 3 x 1.6 x 2.2 cm. Normal contour. Prominent right adnexal vessels. Left adnexa: The left ovary measures 2.4 x 2.5 x 1.3 cm. Normal contour. IMPRESSION: 1. Normal growth. 2. No visualized anomalies. 3. Low lying placenta terminates 1.6 cm from the internal cervical os. Recommend follow-up in the 3rd trimester. at 1610 Reported and signed by: Len Noble MD CC: Roxana ECHAVARRIA Technologist: Kary Gonzalez RDMS Probe: Trnscrbd D/ (1610) GCD.CPS Orig Print D/T: S: 05/07/2021 (1610) [facility] NAME: JOAN MCGINNIS Radiology Department PHYS:Roxana Saavedra III, MD [address] : 1995 AGE: 25 SEX: F [place] [address] LOC: KyraRAD PHONE #: [phone] EXAM DATE: 05/07/2021 STATUS: REG CLI FAX #: [phone] RAD NO: Page 2 Signed Report Patient Name: JOAN MCGINNIS Unit No: [id number] EXAMS: CPT CODE: [id number] US PREG AFTER TRI 97375 (Continued) [facility] NAME: JOAN MCGINNIS Radiology Department PHYS: Roxana Saavedra III, MD [address] : 1995 AGE: 25 SEX: [place] [address] LOC: Edgardo.RAD PHONE #: [phone] EXAM DATE: 05/07/2021 STATUS: REG CLI FAX #: [phone] RAD NO: Page 3 Signed Report Notes Date/Time Note Provider Source 2021-09-18 09:36:00-00:00 [id number] [facility] [address] [place], [place] [address] PATIENT NAME: JOAN MCGINNIS ADMIT DATE: 09/15/21 ACCOUNT NO: [id number] ROOM NO: 2206 AGE: 25 SEX: F ADMITTING PHYSICIAN: Roxana Espinal III, MD ATTENDING PHYSICIAN: Roxana Espinal III, MD ADMISSION DATE: 09/15/2021 DISCHARGE DATE: 09/18/2021 ADMITTING DIAGNOSES: Term intrauterine , repeat section. HISTORY OF PRESENT ILLNESS: The patient is a 25- year-old 4, para 2, status post and repeat section. Wi th her last in 2013, she had a fourth-degree episiotomy. She now wishes t o proceed with a repeat section. Her was unev entful. She was slightly anemic at the end of with 11.8 g andres of hemoglobin. Her 1-hour glucose was 165 with a normal 3-hour glucose tolerance test. Rubella was nonimmune. VDRL nonreactive. GC and chlamydia negative, HIV nega tive, GBS negative, hepatitis negative. The patient has also had the Trendlr cine twice during . Toward the end of , she had two visits to the [facility] for swelling, headache, and also possible labor, these ____ pr steve to be negative visits in that she did not have preeclampsia or labor. ALLERGIES: PENICILLIN CAUSES A RASH. PAST SURGICAL HISTORY: section. She has also received a blood transfusion in the past. SOCIAL HISTORY: Negative for alcohol, tobacco, o r recreational drug use. CURRENT MEDICATIONS: vitamin and iron. PHYSICAL EXAMINATION: VITAL SIGNS: Blood pressure 120/70, weight 167, height 4 feet 11 inches. GENERAL: Well-developed, well-nourished Latin-Am erican female, in no apparent distress. HEENT: Normocephalic. PERRLA. EOMs intact. Scler ae nonicteric. Oropharynx clear. HEART: Regular rate and rhythm. No murmur or gal lop. LUNGS: Clear. EXTREMITIES: Without clubbing or cyanosis, +1 pr etibial edema. ABDOMEN: Gravid, panniculus with some edema in t he lower part of the panniculus. Pfannenstiel scar noted. Estimated f etal weight 7.5 to 8 pounds. PELVIC: Cervical exam was deferred. HOSPITAL COURSE: The patient underwent a repeat low transverse section. At time of admission, her hemog lobin was 7.8 grams. During the course of the section, she lost about 800 mL. She has been typed and crossed that morning just in case she needed blood. Bloo d was given postop in the PATIENT NAME: JOAN MCGINNIS 509 recovery room. During the recovery room, she als o experienced some mild hemorrhage with several large clots. Hospitalist saw her and noted there was 100 mL in the vaul t, but probably a couple 100 other mL had been lost during that time. She was originally given Methe rgine and Pitocin in the operating room and she was given tranexamic acid and Cytotec. The bleeding then resolved and H and H at that eveni ng was approximately 7.6. However, the following morning, it was in the 5 range. She was completely asymptomatic with normal pulse and no sh ortness of breath; however, because of the hemoglobin being 5.6, she was given 2 additi onal units of blood, which improved her color and her overall sense of well being. She was discharged on postop day #3 in good condit ion. After her last transfusion, her hemoglobin was up to 9.8. 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 PLAN: Discharge on vitamins and iron. Follow up in 2 to 6 weeks. The usual precautions and fever, chill s, infection risks were discussed with the patient. Dictated By: Roxana Espinal III, MD WT: DS:REBEL/ABI/SERA Conf#: [id number]/DID#: [id number] Authenticated by Roxana Espinal MD On 09/23/2021 01:22:20 PM Electronically Signed by Roxana Espinal III, MD o n 09/23/21 at 0122 PATIENT NAME: JOAN MCGINNIS 509 2021-09-18 08:53:00-00:00 [facility] ([facility]) OB Postpart Progr Note REPORT#:[id number] REPORT STATUS: Signed DATE:09/18/21 TIME: 852 PATIENT: JOAN MCGINNIS UNIT #: [id number] ROOM/BED: [facility] : [birth year] AGE: 25 SEX: F ATTEND: Roxana Espinal III, MD ADM AUTHOR: Roxana Espinal III, MD * ALL edits or amendments must be made on the el EGT/computer document * Subjective Subjective Admission EGA: Weeks: 39 Days: 0 EGA at delivery (wks/days): 39 weeks Status/day: post , post operative Patient reports: Patient reports: Yes: normal lochia, pain management effective, tolerating po well, voiding well, voiding without pain, tolerating ambulatio n, flatus. No: complaints, bowel movement, nausea, vomiting, excessive blee ding, abdominal pain. Objective Nursing Documentation Review Nursing data: The data set between the solid lines has been im ported from nursing documentation. Any exceptions have been noted be low under Provider comments. Feeding preference: Post hemorrhage risk score: High Risk for Hemorrhage. Provider comments on imported nursing data: [] Physical Exam Incision site: well approximated edges, almaz intact, no drainage, no inflammation Uterus: firm, non-tender Fundus: below the umbilicus Lochia: normal Lower extremities: Edema: 1+ pitting Tavia's sign: negative Diagnosis, Assessment Plan Diagnosis, Assessment Plan Free text A P: I saw the pqatient in PACU y esterday shortly after the hospitalist evaluated the patient and agreed with her findings and reccomm endation. At 1730 I revisited the rick ent yesterday after her blood transfusion with an H /H reported to be 7.6. A repeat H/H this AM was 5.4 / 17.3 which I feel is appropriate with IV dilution and redistribution of fluids and considering the 800-900 ml surgical blood loss and post bleeding that occured in the PAC u. Patient looks well this AM. No nausea, SOB, and is voiding well. Will Transfuse an addition 2 U PRBCs and check a CBC after the transfusion. Assessment: nml p rogress, acute blood loss anemia, chronic blood loss anemia Plan: routine care, discharge today Plan discussed with: patient, spouse/partner at 0854 RPT #:[id number] END OF REPORT 2021-09-17 08:29:00-00:00 [facility] OB Postpart Progr Note REPORT#:[id number] REPORT STATUS: Signed DATE:09/17/21 TIME: 828 PATIENT: JOAN MCGINNIS UNIT #: [id number] ROOM/BED: [address] : [birth year] AGE: 25 SEX: F ATTEND: Roxana Espinal III, MD ADM AUTHOR: Roxana Espinal III, MD * ALL edits or amendments must be made on the [employer]/computer document * Subjective Subjective Admission EGA: Weeks: 39 Days: 0 EGA at delivery (wks/days): 39 weeks Status/day: post , post operative Patient reports: Patient reports: Yes: normal lochia, pain management effective, tolerating po well, voiding well, voiding without pain, tolerating ambulatio n, flatus. No: complaints, bowel movement, nausea, vomiting, excess shimon bleeding, abdominal pain, perineal pain, difficulty nursing, headache, blurred visi on. Objective Nursing Documentation Review Nursing data: The data set between the solid lines has been im ported from nursing documentation. Any exceptions have been noted be low under Provider comments. Feeding preference: Post hemorrhage risk score: High Risk for Hemorrhage. Provider comments on imported nursing data: [] Physical Exam Incision site: dressing clean dry Uterus: firm, non-tender Fundus: below the umbilicus Lochia: normal Lower extremities: Edema: 1+ pitting Tavia's sign: negative Diagnosis, Assessment Plan Diagnosis, Assessment Plan Free text A P: I saw the pqatient in PACU y esterday shortly after the hospitalist evaluated the patient and agreed with her findings and reccomm endation. At 1730 I revisited the rick ent yesterday after her blood transfusion with an H /H reported to be 7.6. A repeat H/H this AM was 5.4 / 17.3 which I feel is appropriate with IV dilution and redistribution of fluids and considering the 800-900 ml surgical blood loss and post bleeding that occured in the PAC u. Patient looks well this AM. No nausea, SOB, and is voiding well. Will Transfuse an addition 2 U PRBCs and check a CBC after the transfusion. Assessment: nml p rogress, acute blood loss anemia, chronic blood loss anemia Plan: routine care, discharge tomorro w Comments: Patient doing very well after blood transfusion. Pos flatus pos voiding Will discharge tomorrow if stable at 0831 RPT #:[id number] END OF REPORT 2021-09-16 08:00:00-00:00 [facility] ([facility]) OB Postpart Progr Note REPORT#:[id number] REPORT STATUS: Signed DATE:09/16/21 TIME: 0800 PATIENT: JOAN MCGINNIS UNIT #: [id number] ROOM/BED: [address] : [birth year] AGE: 25 SEX: F ATTEND: Roxana Espinal III, MD ADM AUTHOR: Roxana Espinal III, MD * ALL edits or amendments must be made on the [employer]/computer document * Subjective Subjective Admission EGA: Weeks: 39 EGA at delivery (wks/days): 39 weeks Status/day: post , post operative Patient reports: Patient reports: Yes: normal lochia, pain management effective, tolerating po well, voiding well, voiding without pain. No: complaints, flat us, bowel movement, nausea, vomiting, excessive bleeding , abdominal pain, perineal pain, difficulty nursing, headache, blurred vision. Comments: Patient looks good and feels good this AM . Puls e and respirations WNL . No flatus yet Objective Nursing Documentation Review Nursing data: The data set between the solid lines has been im ported from nursing documentation. Any exceptions have been noted be low under Provider comments. Feeding preference: Post hemorrhage risk score: High Risk for Hemorrhage. Provider comments on imported nursing data: [] Physical Exam Incision site: dressing clean dry Uterus: firm, non-tender Fundus: below the umbilicus Lochia: normal Lower extremities: Edema: 1+ pitting Tavia's sign: negative Add'l comments: scattered bowel sounds Diagnosis, Assessment Plan Diagnosis, Assessment Plan Free text A P: I saw the pqatient in PACU y esterday shortly after the hospitalist evaluated the patient and agreed with her findings and reccomm endation. At 1730 I revisited the rick ent yesterday after her blood transfusion with an H /H reported to be 7.6. A repeat H/H this AM was 5.4 / 17.3 which I feel is appropriate with IV dilution and redistribution of fluids and considering the 800-900 ml surgical blood loss and post bleeding that occured in the PAC u. Patient looks well this AM. No nausea, SOB, and is voiding well. Will Transfuse an addition 2 U PRBCs and check a CBC after the transfusion. at 0808 RPT #:[id number] END OF REPORT 2021-09-15 10:31:00-00:00 [facility] ([facility]) Clinical Note REPORT#:[id number] REPORT STATUS: Signed DATE:09/15/21 TIME: 1031 PATIENT: JOAN MCGINNIS UNIT #: [id number] ROOM/BED: [address] : 93 AGE: 25 SEX: F ATTEND: Roxana Espinal III, MD ADM AUTHOR: Helen Steiner MD * ALL edits or amendments must be made on the el Prizeor[employer]/computer document * Clinical Note Note: CTSP for pp bleeding SBAR received. Pt is s/p RLTCS at term with 8lb 2oz baby. Starting Hgb 7.8. EBL at delivery 800. Pt currently receiving seco nd unit of blood. Pt has received methergine ( in or) ; TXA infusing now and cytotec 1000mcg pr approx 10 min ago. Last Documented: Result Date Time Pulse Ox 97 09/15 1013 B/P 106/72 09/15 1013 Pulse 92 09/15 1013 Resp 20 09/15 1013 B/P Mean 88.0 09/15 0956 Temp 97.9 09/15 0844 NAD Pt comfortable Abd-s/nt Fundus- slight bogginess which improves with mas mamadou BME- approx 100 cc blood and clots removed from lower uterine segment with immediate improvement in jim rine tone. Pt observed with no further increases in bleeding. POD #0 with increased pp ble eding, now improved with meds and exam. Continue to follow bleeding closely. No indication for bakri at this time as uterine tone is good/excellent after meds and evacuation of clot s. Electronically Signed by Helen Steiner MD on 1 11/16/20 at 1035 RPT #:[id number] END OF REPORT 2021-09-15 09:07:00-00:00 [id number] [facility] [address] [place], [place] [address] PATIENT NAME: JOAN MCGINNIS ADMIT DATE: 09/15/21 ACCOUNT NO: [id number] ROOM NO: [facility] AGE: 25 SEX: F ADMITTING PHYSICIAN: Roxana Espinal III, MD ATTENDING PHYSICIAN: Roxana Espinal III, MD OPERATION DATE: 09/15/2021 PREOPERATIVE DIAGNOSES: 1. Term intrauterine . 2. Repeat section. 3. Anemia (8 g of hemoglobin). POSTOPERATIVE DIAGNOSES: 1. Term intrauterine . 2. Repeat section. 3. Anemia (8 g of hemoglobin). SURGEON: Roxana Espinal III, M.D. HAND DEICER ELEMENT WINDER: Bree Mckay SA. ANESTHESIA: Epidural. PROCEDURE: Repeat low transverse sectio n. PROCEDURE IN DETAIL: After the patient had been adequately prepped and draped and with retractors to expos e the section scar previously made beneath the panniculus, a Pfannenstiel incision was made through the previous Pfannenstiel scar, carried down through the [facility] k scar tissue to the fascia. This fascia was excised in the midline, extended laterally with Roberts scissors. The scar in this area was approximately 1.5 cm t hick. The dissection of the rectus muscles off the rectus fascia was carried out with blunt and sharp dissection. Peritoneum was entered bluntly with surgeon's fingertips and extended superiorly and inferiorly. A small amou nt of bladder to the uterine scar was noted. This was taken down with sharp d issection. Bladder blade was placed. Score incision was m whitley in the uterus and viable male weighing 8 pounds 4 ounces and Apgars 8 and 9 was delivered. Fluid was clear. was suctioned. Cord clamped and cut. Infant passed t o the nurses, crying vigorously. Placenta was removed and submitted t o MD Pathak for stem cells. The uterus was exteriorized, wiped free of all c lots and blood, noted to be somewhat boggy. Pitocin had been started and als o Methergine was given. The hysterotomy incision was bairon sed with a running interlocking stitch of 0 PDS with 3 [id number] sutures ne eded to control bleeding. The uterus responded well to bimanual massage and the previous tocolytics. Uterus returned to the abdominal cavity. Gutters were wiped val e of all clots and blood. Incision was closed in layers, 2-0 Monocryl on the peritoneum , 0 PDS on the fascia, 3-0 Vicryl in subcutaneous and skin was closed with almaz. Estimated blood loss was 800 mL to 900 mL. Because of this blood loss and initial hemoglobin of 8, PATIENT NAME: JOAN MCGINNIS 509 the patient had previously 2 units of ty pe and cross blood available and would be given in the recovery room and an H and H kristen cked later on this afternoon. The patient otherwise tolera crystal the procedure well and went to recovery room in good condition. Dictated By: Roxana Espinal III, MD WT: OP:FZORAN/ABI/SERA Conf#: [id number]/DID#: [id number] Authenticated by Roxana Espinal MD On 09/15/2021 02:00:14 PM Electronically Signed by Roxana Espinal III, MD o n 09/15/21 at 0200 PATIENT NAME: JOAN MCGINNIS 509 2021-09-11 20:37:00-00:00 [facility] ([facility]) EMERGENCY PROVIDER REPORT REPORT#:[id number] REPORT STATUS: Signed DATE:09/11/21 TIME: 2036 PATIENT: JOAN MCGINNIS UNIT #: [id number] ROOM/BED: AGE: 25 SEX: F PCP PHYS: Roxana Espinal III, MD SERVICE AUTHOR: Angelo Pacheco III, MD * ALL edits or amendments must be made on the el ectronic/computer document * [facility] History Nursing Documentation Review Nursing data: [facility] 25 year old female SAB 1 @ 38.4 weeks CC Headache, swelling of hands and feet, decrea sed movements HPI She came to the [facility] wit h the recent onset of a moderate bifrontal headache. She took oral tylenol which helped with the headach e. She also noticed the recent onset of increased swelling of her hands and feet. No ab pain, no vaginal bleeding, not leaking amniotic fluid. Has recently noticed de creased movements today. Uncomplicated care with Dr Roxana Espinal. Barely passed her 3 hour GTT and is doing glucose monitoring. Claims normal OB USG during her pre gnancy. To have a repeat c/section next week. PMH Allergies Allergy Severity Reaction Updated Coded Penicillins Unknown RASH 07/17/21 OB SAB 1 C/section, with 4th degree , SAB no d and c PMH Blood transfusion, post hemorrhage PSH C/section MEDS vitamins and iron FMH Positive for diabetes and hypertension SH N o smoke, no etoh, no drugs ROS Bifrontal headache, no scotomata, no photo psia,no fever, no shortness of breath, no chest pain, no vaginal bleeding, not leaking amniotic fluid, decreased movements. Medications: Home Medications: Medication Dose/Rte/Freq Days Qty Entered Last Max Daily Dose Reviewed NITROFURANTOIN/NITROFURAN 100 MG PO BID 14 12/28 MAC 2340 (MACROBID) Strength: 100 MG CAP Current Hospital Medications: Anti-Infective Agents Sig/Mikala Start time Last Medication Dose Route Stop Time Status Admin Ceftriaxone Sodium 1,000 MG ONCE ONE 09/11 2345 AC (ROCEPHIN 1000 MG/ IV 09/12 0014 VIAL) Sodium Chloride 100 ML (SODIUM CHLORIDE 0.9% 100 ML ADD- [place]) Central Nervous System Agents Sig/Mikala Start time Last Medication Dose Route Stop Time Status Admin Acetaminophen/ 1 EACH ONCE ONE 09/11 2115 DC Butalbital/Caffeine PO 09/11 2116 (Fioricet 50-300-40 MG Capsule) Electrolytic, Caloric, And Michelle Sig/Mikala Start time Last Medication Dose Route Stop Time Status Admin Lactated Ringer's 1,000 ML ASDIR 09/11 2100 AC (LACTATED RINGERS) IV 11/10 2058 Allergies Coded Allergies: Penicillins (RASH 09/07/21) Objective General VS: PATIENT WEIGHT: Weight (lb): Weight (oz): Weight (kg): 72.476703 No acute distress, alert, normal affect Afebrile, 149/83, 125/69, 135/74, pulse 75 PUL Chest clear to auscultation, unlabored norm al respirations CVR RRR AB Gravid, mild suprapubic tenderness, no guard ing SVE By nursing staff 3 cm/50% effaced/-2 statio n vertex EXT Mild pretibial edema, normal reflexes, no c mcc tenderness TOCO Irregular mild uterine contractions FHT Category one FHTs, accelerations are presen t I came to her room and introduced myself. H and P completed. Plan of care discussed. I returned later to give her the testing result s. She received IV hydration and oral fioricet while awaiting her testing results. Symptoms im proved. She received one gram of rocephin IV for UTI. Urine culture ordered. Cleared for discharge. Nursing staff spoke with Dr Espinal. Laboratory Tests: 09/11 Chemistry Sodium (135 - 145 mEq/L) 138 Potassium (3.5 - 5.0 mEq/L) 3.8 Chloride (100 - 115 mEq/L) 105 Carbon Dioxide (22 - 31 mEq/L) 24 Anion Gap (10 - 20) 12.60 BUN (7 - 18 mg/dL) 6 L Creatinine (0.5 - 1.0 mg/dL) 0.8 Glomerular Filtr Rate (>60 ml/min) 86 Glucose (65 - 110 mg/dL) 101 Uric Acid (2.6 - 6.0 mg/dL) 5.1 Calcium (8.4 - 10.2 mg/dL) 7.5 L Total Bilirubin (0.2 - 1.0 mg/dL) 0.2 AST (15 - 37 units/L) 17 ALT (12 - 78 units/L) 12 Total Alk Phosphatase (46 - 116 units/L) 226 H Total Protein (6.3 - 8.2 gm/dL) 5.2 L Albumin (3.4 - 4.8 gm/dL) 1.8 L Hematology WBC (6.5 - 12.3 K/mm3) 6.4 L RBC (3.51 - 4.69 M/mm3) 3.36 L Hgb (10.1 - 13.8 g/dL) 8.0 L Hct (32.5 - 41.8 %) 25.5 L MCV (84.6 - 96.6 fL) 75.9 L MCH (27.3 - 33.9 pg) 23.8 L MCHC (32.0 - 34.2 gm/dL) 31.4 L RDW (12.2 - 16.3 %) 16.5 H Plt Count (134 - 363 K/mm3) 206 MPV (9.2 - 12.7 fL) 9.7 Neut % (Auto) (57.9 - 77.3 %) 57.8 L Lymph % (Auto) (14.5 - 29.7 %) 32.3 H Bleck[place] % (Auto) (3.6 - 10.2 %) 6.3 Eos % (Auto) (0.0 - 3.0 %) 3.0 Baso % (Auto) (0.1 - 0.9 %) 0.3 Neut # (Auto) (K/mm3) 3.7 Lymph # (Auto) (K/mm3) 2.1 [place] # (Auto) (K/mm3) 0.4 Eos # (Auto) (K/mm3) 0.19 Baso # (Auto) (K/mm3) 0.0 Urines Urine Color (YELLOW) YELLOW Urine Appearance (CLEAR) CLOUDY A Urine pH (5 - 9) 6.0 Ur Specific [place] (1.001 - 1.035) 1.018 Urine Protein (NEG) 1+ H Urine Glucose (UA) (NEG) NEGATIVE Urine Ketones (NEG) NEGATIVE Urine Blood (NEG) NEG Urine Nitrite (NEG) NEG Urine Bilirubin (NEG) NEGATIVE Urine Urobilinogen (NEG mg/dL) NEGATIVE Ur Leukocyte Esterase (NEG) 3+ H Urine RBC (NONE SEEN #/hpf) 3-5 H Urine WBC (NONE SEEN #/hpf) 6-10 H Ur Epithelial Cells (RARE - FEW #/HPF) MANY H Urine Bacteria (RARE - FEW /HPF) RARE Urine Mucus (NONE SEEN) RARE Ur Random Creatinine (mg/dL) 213.0 U Random Total Protein (mg/dL) 65.4 Protein/Creatinin Ratio (<200 mg/gcrea) 307.0 H Recent Impressions: ULTRASOUND - US FET BIO PH IA W/O NST 09/11 2121 Report Impression - Status: SIGNED Entered: 09/11/20212206 IMPRESSION: 1. There is a single live intrauterine gestation . 2. Normal biophysical profile score of 8/8. 3. There is vertex presentation. 4. There is a grade 2 fundal placenta. There is no placenta previa or placental abruption. 5. The amniotic fluid index is 13 cm. The deepes t vertical pocket is 4.2 cm. This is near the 50th percentile for gestational age. 6. The uterine cervix is obscured due to shadowi ng from the head. Impression By: [email or web address] - Danish Harp DO Results Findings/Data: Laboratory Tests: 09/11 193 Chemistry Sodium (135 - 145 mEq/L) 138 Potassium (3.5 - 5.0 mEq/L) 3.8 Chloride (100 - 115 mEq/L) 105 Carbon Dioxide (22 - 31 mEq/L) 24 Anion Gap (10 - 20) 12.60 BUN (7 - 18 mg/dL) 6 L Creatinine (0.5 - 1.0 mg/dL) 0.8 Glomerular Filtr Rate (>60 ml/min) 86 Glucose (65 - 110 mg/dL) 101 Uric Acid (2.6 - 6.0 mg/dL) 5.1 Calcium (8.4 - 10.2 mg/dL) 7.5 L Total Bilirubin (0.2 - 1.0 mg/dL) 0.2 AST (15 - 37 units/L) 17 ALT (12 - 78 units/L) 12 Total Alk Phosphatase (46 - 116 units/L) 226 H Total Protein (6.3 - 8.2 gm/dL) 5.2 L Albumin (3.4 - 4.8 gm/dL) 1.8 L Hematology WBC (6.5 - 12.3 K/mm3) 6.4 L RBC (3.51 - 4.69 M/mm3) 3.36 L Hgb (10.1 - 13.8 g/dL) 8.0 L Hct (32.5 - 41.8 %) 25.5 L MCV (84.6 - 96.6 fL) 75.9 L MCH (27.3 - 33.9 pg) 23.8 L MCHC (32.0 - 34.2 gm/dL) 31.4 L RDW (12.2 - 16.3 %) 16.5 H Plt Count (134 - 363 K/mm3) 206 MPV (9.2 - 12.7 fL) 9.7 Neut % (Auto) (57.9 - 77.3 %) 57.8 L Lymph % (Auto) (14.5 - 29.7 %) 32.3 H [place] % (Auto) (3.6 - 10.2 %) 6.3 Eos % (Auto) (0.0 - 3.0 %) 3.0 Baso % (Auto) (0.1 - 0.9 %) 0.3 Neut # (Auto) (K/mm3) 3.7 Lymph # (Auto) (K/mm3) 2.1 [place] # (Auto) (K/mm3) 0.4 Eos # (Auto) (K/mm3) 0.19 Baso # (Auto) (K/mm3) 0.0 Urines Urine Color (YELLOW) YELLOW Urine Appearance (CLEAR) CLOUDY A Urine pH (5 - 9) 6.0 Ur Specific [place] (1.001 - 1.035) 1.018 Urine Protein (NEG) 1+ H Urine Glucose (UA) (NEG) NEGATIVE Urine Ketones (NEG) NEGATIVE Urine Blood (NEG) NEG Urine Nitrite (NEG) NEG Urine Bilirubin (NEG) NEGATIVE Urine Urobilinogen (NEG mg/dL) NEGATIVE Ur Leukocyte Esterase (NEG) 3+ H Urine RBC (NONE SEEN #/hpf) 3-5 H Urine WBC (NONE SEEN #/hpf) 6-10 H Ur Epithelial Cells (RARE - FEW #/HPF) MANY H Urine Bacteria (RARE - FEW /HPF) RARE Urine Mucus (NONE SEEN) RARE Ur Random Creatinine (mg/dL) 213.0 U Random Total Protein (mg/dL) 65.4 Protein/Creatinin Ratio (<200 mg/gcrea) 307.0 H Microbiology: Date/Time Procedure - Status Source Growth 09/11 1932 Urine Culture - RECD URINE Recent Impressions: ULTRASOUND - US FET BIO PH IA W/O NST 09/11 2121 Report Impression - Status: SIGNED Entered: 09/11/20212206 IMPRESSION: 1. There is a single live intrauterine gestation . 2. Normal biophysical profile score of 8/8. 3. There is vertex presentation. 4. There is a grade 2 fundal placenta. There is no placenta previa or placental abruption. 5. The amniotic fluid index is 13 cm. The deepes t vertical pocket is 4.2 cm. This is near the 50th percentile for gestational age. 6. The uterine cervix is obscured due to shadowi ng from the head. Impression By: [email or web address] - Danish Harp, Diagnosis, Assessment Plan Diagnosis, Assessment Plan Free Text A P: A IUP at 37.4 weeks UTI in Decreased movements BPP 8/8, category one FHT/reactive NST Previous c/section Not in labor P Discharge to home. Labor precautions. Rx for M acrobid 100mg BID, urine culture. F/U with Dr Espinal. Electronically Signed by Angelo Pacheco III, MD on 12/28 at 2357 RPT #:[id number] END OF REPORT 2021-09-11 09:54:00-00:00 [id number] [facility] [address] [place] [address] PATIENT NAME: JOAN MCGINNIS ADMIT DATE: 1 ACCOUNT NO: [id number] ROOM NO: [facility] AGE: 25 SEX: F ADMITTING PHYSICIAN: Roxana Espinal III, MD ATTENDING PHYSICIAN: Roxana Espinal III, MD ADMISSION DATE: 09/15/2021 DATE OF ADMISSION: 09/15/2021 ADMITTING DIAGNOSES: Term intrauterine , repeat section. HISTORY OF PRESENT ILLNESS: The patient is a 25- year-old 4, para 2, repeat section x1. Did have a V YOSELIN a few years ago with fourth-degree episiotomy, first baby was a section. T he patient wishes to have a section for this de livery. Her blood type is O positive, GBS negative, rubella nonimmune, VDRL nonreactive. Three-hour glucose tolerance test was minimally elevated. PAST MEDICAL HISTORY: ALLERGIES: PENICILLIN. PAST SURGICAL HISTORY: section. REVIEW OF SYSTEMS: Negative except for history o f blood transfusion. PHYSICAL EXAMINATION: VITAL SIGNS: Blood pressure 120/60-70, weight 16 7 pounds, height 4 feet 9 inches. GENERAL: Well-developed, well-nourished Latin-Am erican female, in no apparent distress. Remainder of physical exam within norm al limits. ABDOMEN: Estimated weight 7 to 7-1/2 pound s. PELVIS: Cervical exam was deferred. FHTs were re active. NEUROLOGIC: Grossly intact. MUSCULOSKELETAL: Grossly intact. IMPRESSION: Term intrauterine , repeat section. PLAN: Repeat section. The patient does not desire tubal ligation. The patient has also had a COVID vaccine x2 with no incidence of COVID this year. She also received a flu shot and Tdap. Dictated By: Roxana Espinal III, MD WT: HP:FZORAN/ABI/SERA PATIENT NAME: JOAN MCGINNIS 509 Conf#: [id number]/DID#: [id number] Authenticated by Roxana Espinal MD On 09/15/2021 02:00:12 PM Electronically Signed by Roxana Espinal III, MD o n 09/15/21 at 0200 PATIENT NAME: JOAN MCGINNIS 509 2021-07-17 02:20:00-00:00 [facility] EMERGENCY PROVIDER REPORT REPORT#:[id number] REPORT STATUS: Signed DATE:07/17/21 TIME: 0220 PATIENT: JOAN MCGINNIS UNIT #: [id number] ROOM/BED: AGE: 25 SEX: F PCP PHYS: Roxana Espinal III, MD SERVICE AUTHOR: Angelo Pacheco III, MD * ALL edits or amendments must be made on the el ectronic/computer document * K[facility] History Nursing Documentation Review Nursing data: The data set between the solid lines has been im ported from nursing documentation. Any exceptions have been noted be low under Provider comments. Current data Steroids prior to arrival: __ [facility] 25 year old female SAB 1 @ 30.4 weeks CC Low back pain HPI She came to the [facility] with the recent onset of moderate lower back pain. No previous history of the pain. She has not taken meds for the pain. Denies recent injury. No vaginal bleeding, not leaking amniotic fluid, endorses positive movement. Uncomplicated care with Dr Roxana Espinal. Claims normal OB USG during her PMH Allergies Allergy Severity Reaction Updated Coded Penicillins Unknown RASH 07/17/21 OB SAB 1 C/section, with 4th degree , SAB no d and c PMH Blood transfusion PSH C/section MEDS vitamins and iron FMH Positive for diabetes and hypertension SH N o smoke, no etoh, no drugs ROS No fever, no shortness of breath, no chest pain, mild suprapubic pain, no vaginal bleeding, not leaking amniotic fluid, endorses positive movements. Medications: Current Hospital Medications: Central Nervous System Agents Sig/Mikala Start time Last Medication Dose Route Stop Time Status Admin Acetaminophen 650 MG NOW ONE 07/17 245 DC 10/0 8 (ACETAMINOPHEN 325 PO 07/17 246 0257 MG TAB) Acetaminophen 650 MG Q6H PRN PRN 07/17 230 AC (ACETAMINOPHEN 325 PO 09/15 0229 MG TAB) Electrolytic, Caloric, And Michelle Sig/Mikala Start time Last Medication Dose Route Stop Time Status Admin Lactated Ringer's 1,000 ML ASDIR 07/17 230 AC (LACTATED RINGERS) IV 09/15 229 Allergies Coded Allergies: Penicillins (RASH 07/17/21) Objective General VS: PATIENT WEIGHT: Weight (lb): Weight (oz): Weight (kg): 68.775727 No acute distress, alert, normal affect Afebrile, 104/63f, pulse 77 PUL Chest clear to auscultation, unlabored norm al respirations CVR RRR AB Gravid, mild suprapubic tenderness SVE Deferred EXT No pathological pretibial edema, normal ref lexes, no calf tenderness TOCO She is not tra FHT Reassuring, category one, accelerations are present BACK No flank tenderness, points to bilateral l ower sacral area I came to her room and introduced myself. H and P completed. Plan of care discussed. She was given IV hydration and oral tylenol for the pain. Symptoms improved. I gave her results of her testing. Laboratory T ests: 07/17 07/17 0255 0156 Chemistry Sodium (135 - 145 mEq/L) 138 Potassium (3.5 - 5.0 mEq/L) 4.6 Chloride (100 - 115 mEq/L) 107 Carbon Dioxide (22 - 31 mEq/L) 24 Anion Gap (10 - 20) 11.70 BUN (7 - 18 mg/dL) 4 L Creatinine (0.5 - 1.0 mg/dL) 0.2 L Glomerular Filtr Rate (>60 ml/min) 426 Glucose (65 - 110 mg/dL) 83 Calcium (8.4 - 10.2 mg/dL) 7.9 L Total Bilirubin (0.2 - 1.0 mg/dL) 0.3 AST (15 - 37 units/L) 36 ALT (12 - 78 units/L) 9 L Total Alk Phosphatase (46 - 116 units/L) 115 Total Protein (6.3 - 8.2 gm/dL) 5.5 L Albumin (3.4 - 4.8 gm/dL) 2.1 L Hematology WBC (6.5 - 12.3 K/mm3) 7.8 RBC (3.51 - 4.69 M/mm3) 3.47 L Hgb (10.1 - 13.8 g/dL) 9.3 L Hct (32.5 - 41.8 %) 29.3 L MCV (84.6 - 96.6 fL) 84.4 L MCH (27.3 - 33.9 pg) 26.8 L MCHC (32.0 - 34.2 gm/dL) 31.7 L RDW (12.2 - 16.3 %) 14.7 Plt Count (134 - 363 K/mm3) 228 MPV (9.2 - 12.7 fL) 8.8 L Neut % (Auto) (57.9 - 77.3 %) 50.8 L Lymph % (Auto) (14.5 - 29.7 %) 36.1 H [place] % (Auto) (3.6 - 10.2 %) 8.5 Eos % (Auto) (0.0 - 3.0 %) 3.9 H Baso % (Auto) (0.1 - 0.9 %) 0.3 Neut # (Auto) (K/mm3) 4.0 Lymph # (Auto) (K/mm3) 2.8 [place] # (Auto) (K/mm3) 0.7 Eos # (Auto) (K/mm3) 0.30 Baso # (Auto) (K/mm3) 0.0 Urines Urine Color (YELLOW) YELLOW Urine Appearance (CLEAR) CLEAR Urine pH (5 - 9) 7.0 Ur Specific [place] (1.001 - 1.035) 1.015 Urine Protein (NEGATIVE) NEGATIVE Urine Glucose (UA) (NEGATIVE) NEGATIVE Urine Ketones (NEGATIVE) NEGATIVE Urine Blood (NEGATIVE) TRACE H Urine Nitrite (NEGATIVE) NEGATIVE Urine Bilirubin (NEGATIVE) NEGATIVE Urine Urobilinogen (<=1.0 EU/dL) 0.2 Ur Leukocyte Esterase (NEGATIVE) TRACE H Urine RBC (NONE SEEN #/hpf) 0-2 Urine WBC (NONE SEEN #/hpf) 0-2 Ur Epithelial Cells (RARE - FEW #/HPF) RARE Urine Bacteria (RARE - FEW /HPF) RARE Results Findings/Data: Laboratory Tests: 07/17 07/17 0255 0156 Chemistry Sodium (135 - 145 mEq/L) 138 Potassium (3.5 - 5.0 mEq/L) 4.6 Chloride (100 - 115 mEq/L) 107 Carbon Dioxide (22 - 31 mEq/L) 24 Anion Gap (10 - 20) 11.70 BUN (7 - 18 mg/dL) 4 L Creatinine (0.5 - 1.0 mg/dL) 0.2 L Glomerular Filtr Rate (>60 ml/min) 426 Glucose (65 - 110 mg/dL) 83 Calcium (8.4 - 10.2 mg/dL) 7.9 L Total Bilirubin (0.2 - 1.0 mg/dL) 0.3 AST (15 - 37 units/L) 36 ALT (12 - 78 units/L) 9 L Total Alk Phosphatase (46 - 116 units/L) 115 Total Protein (6.3 - 8.2 gm/dL) 5.5 L Albumin (3.4 - 4.8 gm/dL) 2.1 L Hematology WBC (6.5 - 12.3 K/mm3) 7.8 RBC (3.51 - 4.69 M/mm3) 3.47 L Hgb (10.1 - 13.8 g/dL) 9.3 L Hct (32.5 - 41.8 %) 29.3 L MCV (84.6 - 96.6 fL) 84.4 L MCH (27.3 - 33.9 pg) 26.8 L MCHC (32.0 - 34.2 gm/dL) 31.7 L RDW (12.2 - 16.3 %) 14.7 Plt Count (134 - 363 K/mm3) 228 MPV (9.2 - 12.7 fL) 8.8 L Neut % (Auto) (57.9 - 77.3 %) 50.8 L Lymph % (Auto) (14.5 - 29.7 %) 36.1 H [place] % (Auto) (3.6 - 10.2 %) 8.5 Eos % (Auto) (0.0 - 3.0 %) 3.9 H Baso % (Auto) (0.1 - 0.9 %) 0.3 Neut # (Auto) (K/mm3) 4.0 Lymph # (Auto) (K/mm3) 2.8 [place] # (Auto) (K/mm3) 0.7 Eos # (Auto) (K/mm3) 0.30 Baso # (Auto) (K/mm3) 0.0 Urines Urine Color (YELLOW) YELLOW Urine Appearance (CLEAR) CLEAR Urine pH (5 - 9) 7.0 Ur Specific [place] (1.001 - 1.035) 1.015 Urine Protein (NEGATIVE) NEGATIVE Urine Glucose (UA) (NEGATIVE) NEGATIVE Urine Ketones (NEGATIVE) NEGATIVE Urine Blood (NEGATIVE) TRACE H Urine Nitrite (NEGATIVE) NEGATIVE Urine Bilirubin (NEGATIVE) NEGATIVE Urine Urobilinogen (<=1.0 EU/dL) 0.2 Ur Leukocyte Esterase (NEGATIVE) TRACE H Urine RBC (NONE SEEN #/hpf) 0-2 Urine WBC (NONE SEEN #/hpf) 0-2 Ur Epithelial Cells (RARE - FEW #/HPF) RARE Urine Bacteria (RARE - FEW /HPF) RARE Diagnosis, Assessment Plan Diagnosis, Assessment Plan Free Text A P: A IUP at 30.4 weeks Dorsalgia P Cleared for discharge. Labor precautions. Travis mmended a maternity belt. Oral tylenol prn pain. F/U with Dr Teddy boo Electronically Signed by Angelo Pacheco III, MD on 05/30 at 0405 RPT #:[id number] END OF REPORT
[2023-03-01] MEDS ORDERED: MORPHINE 4 MG/ML SYR ONE (14:05)
[2023-03-01] MEDS ORDERED: NA CHLORIDE 0.9% 1,000 ML ONE (14:06)
[2023-03-01] MEDS ORDERED: ONDANSETRON 4 MG/2 ML VIAL ONE (14:06)
[2023-03-01 14:34] LABS: Absolute Lymphocytes (CBC) 2.5 K/uL (0.7-4.9); Hematocrit 36.3 % (36.0-45.0); Lymphocytes % 25.9 % (15.3-44.8); MCV 84.2 fL (80-100); MPV 7.2 fL (7.6-11.3); RBC Red Blood Cell Count 4.32 M/uL (3.86-4.86)
[2023-03-01 14:41] LABS: Specific Gravity 1.018 (1.005-1.030); Urine Bacteria None Seen /HPF (<20); Urine Bilirubin NEGATIVE (Negative); Urine Blood 2+ (Negative); Urine Clarity Clear (Clear); Urine Color Yellow (Yellow); Urine Glucose NEGATIVE (Negative); Urine Mucus Slight /HPF (None Seen); Urine Protein TRACE (Negative); Urine RBC <5 /HPF (None Seen); Urine Urobilinogen Normal (Normal); Urine pH 5.5 (5.0-7.0)
[2023-03-01 14:51] LABS: Albumin 3.4 g/dL (3.4-5.0); Bilirubin Total 0.3 mg/dL (0.2-1.0); Potassium 3.7 mEq/L (3.5-5.1); Protein, Total 7.3 g/dL (6.4-8.2)
--- NOTE | 2023-03-01 15:27 | RAD REPORT ---
EXAM DESCRIPTION: CT - Abdomen Pelvis W Contrast - 03/01/2023 2:51 pm CLINICAL HISTORY: ABD PAIN COMPARISON: No comparisons TECHNIQUE: Thin cut axial CT imaging of the abdomen and pelvis was performed following intravenous a dministration of 95 mL Isovue 300. Multiplanar reformats were generated and reviewed. All CT scans are performed using dose optimization technique as appropriate and may include automated exposure control or mA/KV adjustment according to patient size. FINDINGS: No suspicious findings in the lung bases. The liver, spleen, and pancreas show no suspicious findings. Gallbladder and biliary tree are also wi thout suspicious finding. Gallbladder is distended. Mild wall thickening, and suggestion of mucosal hyperenhancement versus ear ly mineralization. Common bile duct is mildly prominent in caliber, measuring 6 millimeter. No intrah epatic biliary ductal dilation. Symmetric renal function is seen with no hydronephrosis or suspicious renal mass. No dilated bowel loops or bowel wall thickening. No free air, free fluid or inflammatory stranding. N o hernia, mass or bulky lymphadenopathy. The urinary bladder is suboptimally distended limiting evalu ation, without significant finding. No suspicious bony findings. IMPRESSION: Distended gallbladder with mild wall thickening and suggestion of mucosal hyperenhanceme nt. Please correlate clinically for evidence of acute cholecystitis. Alternatively, mucosal hyperdensity could be related to early changes of porcelain gallbladder.
--- NOTE | 2023-03-01 16:04 | RAD REPORT ---
EXAM DESCRIPTION: US - Abdomen Exam Limited - 03/01/2023 3:57 pm CLINICAL HISTORY: gallbladder;Abd pain COMPARISON: Abdomen Pelvis W Contrast dated 03/01/2023 TECHNIQUE: Sonographic grayscale and color flow images of the were obtained. FINDINGS: The gallbladder demonstrates wall thickening, up to 7 millimeter, with trace pericholecyst ic edema. Gallbladder is moderately distended. Small echogenic calculi seen near the neck. The common bile duct is prominent measuring 7 mm. The liver demonstrates no findings of intrahepatic biliary dilatation. IMPRESSION: Findings concerning for acute cholecystitis as above. Prominence of the common bile duct, measuring 7 millimeter in caliber, without evidence of a common d uct calculus.
--- NOTE | 2023-03-01 16:33 | EDPHYS ---
Physician Documentation [facility] Name: Mariya Albert Age: 27 yrs Sex: Female : 1995 Arrival Date: 03/01/2023 Time: 13:37 Bed 11 Private MD: ED Physician Debra Barraza HPI: 03/01 13:55 This 27 yrs old Female presents to ER via Ambulatory with complaints of LUQ jh7 pain. 13:55 Onset: The symptoms/episode began/occurred last night. Associated signs and symptoms: jh7 Pertinent positives: nausea, Pertinent negatives: diarrhea, dizziness, dysuria, fever, vomiting. 27-year-old female presents with left upper quadrant pain that radiates to her shoulder. Reports nausea, but denies dysuria, fever, and diarrhea. Denies any past medical history. Reports that Dr. Mercer is her PCP.. 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 - Social history:: Smoking status: . ROS: 13:55 Constitutional: Negative for fever, chills, and weight loss, Eyes: Negative for injury, jh7 pain, redness, and discharge, Neck: Negative for injury, pain, and swelling, Cardiovascular: Negative for chest pain, palpitations, and edema, Respiratory: Negative for shortness of breath, cough, wheezing, and pleuritic chest pain, Back: Negative for injury and pain, MS/Extremity: Negative for injury and deformity, Skin: Negative for injury, rash, and discoloration, Neuro: Negative for headache, weakness, numbness, tingling, and seizure. 13:55 Abdomen/GI: Positive for abdominal pain, nausea, Negative for vomiting, diarrhea, constipation, rectal bleeding. 13:55 All other systems are negative. Exam: 13:55 Eyes: Pupils equal round and reactive to light, extra-ocular motions intact. Lids and jh7 lashes normal. Conjunctiva and sclera are non-icteric and not injected. Cornea within normal limits. Periorbital areas with no swelling, redness, or edema. Neck: Trachea midline, no thyromegaly or masses palpated, and no cervical lymphadenopathy. Supple, full range of motion without nuchal rigidity, or vertebral point tenderness. No Meningismus. Cardiovascular: Regular rate and rhythm with a normal S1 and S2. No gallops, murmurs, or rubs. Normal PMI, no JVD. No pulse deficits. Respiratory: Lungs have equal breath sounds bilaterally, clear to auscultation and percussion. No rales, rhonchi or wheezes noted. No increased work of breathing, no retractions or nasal flaring. Back: No spinal tenderness. No costovertebral tenderness. Full range of motion. Skin: Warm, dry with normal turgor. Normal color with no rashes, no lesions, and no evidence of cellulitis. MS/ Extremity: Pulses equal, no cyanosis. Neurovascular intact. Full, normal range of motion. Neuro: Awake and alert, GCS 15, oriented to person, place, time, and situation. Motor strength 5/5 in all extremities. Sensory grossly intact. Normal gait. 13:55 Constitutional: The patient appears alert, awake, in obvious pain. 13:55 Abdomen/GI: Inspection: abdomen appears normal, Bowel sounds: normal, Palpation: soft, moderate abdominal tenderness, in the left upper quadrant. Vital Signs: 13:53 BP 116 / 77; Pulse 80; Resp 16; Temp 97.5; Pulse Ox 100% on R/A; Weight 56.7 kg; Height iw 4 ft. 9 in. ; Pain 7/10; 15:00 BP 106 / 72; Pulse 78; Resp 16; Pulse Ox 99% on R/A; eh3 16:00 BP 106 / 74; Pulse 82; Resp 16; Pulse Ox 100% on R/A; eh3 13:53 Body Mass Index 27.05 (56.70 kg, 144.78 cm) iw 13:53 Pain Scale: Adult iw MDM: 13:[address] [facility] 16:20 Differential diagnosis: nephrolithiasis, pyelonephritis, Gastritis, gastric ulcer, jh7 cholecystitis. Data reviewed: vital signs, nurses notes, lab test result(s), radiologic studies, CT scan, ultrasound. Consideration of Admission/Observation Escalation of care including admission/observation considered. Management of patient was discussed with the following: Commercial Lending Assistant: Dr. Velasquez, general surgery. Consulted Dr. Velasquez with patient condition, imaging, and lab findings. He advised to have the patient follow-up with him in office tomorrow for further work-up. He recommended for her to be started on Cipro/Flagyl, a PPI, and pain medicine.. I considered the following discharge prescriptions or medication management in the emergency department Medications were administered in the Emergency Department. See MAR. Counseling: I had a detailed discussion with the patient and/or guardian regarding: the historical points, exam findings, and any diagnostic results supporting the discharge/admit diagnosis, the need for outpatient follow up, a general surgeon, to return to the emergency department if symptoms worsen or persist or if there are any questions or concerns that arise at home. Response to treatment: the patient's symptoms have markedly improved after treatment. 03/01 13:52 Order name: CBC with Diff; Complete Time: 14:58 [facility] 03/01 13:52 Order name: CMP; Complete Time: 14:58 [facility] 03/01 13:52 Order name: Lipase; Complete Time: 14:58 [facility] 03/01 13:52 Order name: Test, Urine; Complete Time: 14:58 [facility] 03/01 13:52 Order name: Urinalysis w/ reflexes; Complete Time: 14:58 [facility] 03/01 13:52 Order name: CT Abd/Pelvis - IV Contrast Only; Complete Time: 15:29 [facility] 03/01 15:38 Order name: US Abdomen Limited; Complete Time: 16:18 [facility] 03/01 13:52 Order name: IV Saline Lock; Complete Time: 14:50 [facility] 03/01 13:52 Order name: Labs collected and sent; Complete Time: 14:50 [facility] Administered Medications: 14:15 Drug: NS 0.9% IV 1000 ml Route: IV; Rate: 1 bolus; Site: right antecubital; 3 15:30 Follow up: IV Status: Completed infusion; IV Intake: 1000ml 3 14:15 Drug: Ondansetron IVP 4 mg Route: IVP; Site: right antecubital; eh3 15:00 Follow up: Response: No adverse reaction 3 14:15 Drug: morphine IVP or IV 4 mg Route: IVP; Infused Over: 4 mins; Site: right antecubital;eh3 15:00 Follow up: Response: Pain is decreased eh3 Disposition Summary: 03/01/23 16:33 Discharge Ordered Location: Home [facility] Problem: [facility] Symptoms: have improved [facility] Condition: Stable [facility] Diagnosis - Acute cholecystitis [facility] Followup: [facility] - With: Josemanuel Simon MD - When: Tomorrow - Reason: Further diagnostic work-up Discharge Instructions: - Discharge Summary Sheet [facility] - Cholecystitis [facility] - Gallbladder Eating Plan [facility] Forms: - Work release form [facility] - Medication Reconciliation Form [facility] - Thank You Letter [facility] - Antibiotic Education [facility] Prescriptions: - acetaminophen-codeine 300-15 mg Oral tablet - take 1 tablet by ORAL route every 6 hours As needed as needed for pain; 20 jh7 tablet; Refills: 0, Product Selection Permitted - Flagyl 500 mg Oral Tablet - take 1 tablet by ORAL route every 12 hours for 7 days; 14 tablet; Refills: 0, [facility] Product Selection Permitted - Nexium 20 mg Oral Capsule - take 1 capsule by ORAL route once daily; 20 capsule; Refills: 0, Product [facility] Selection Permitted - Cipro 500 mg Oral Tablet - take 1 tablet by ORAL route every 12 hours for 7 days; 14 tablet; Refills: 0, [facility] Product Selection Permitted Signatures: Dispatcher [employer] Basia Masters RN RN Monet Rosas RN RN 3 Susannah Kim FNP FNP [facility] Corrections: (The following items were deleted from the chart) 16:43 13:55 This 27 yrs old Female presents to ER via Ambulatory with complaints of jh7 Flank Pain. [facility]
--- NOTE | 2023-03-01 16:33 | ER ---
Nurse's Notes [facility] Name: Mariya Albert Age: 27 yrs Sex: Female : 1995 Arrival Date: 03/01/2023 Time: 13:37 Bed 11 Private MD: Diagnosis: Acute cholecystitis Presentation: 03/01 13:53 Chief complaint: Patient states: LUQ pain since last night , + nausea , denies vomiting iw or diarrhea, denies urinary s/s. Coronavirus screen: At this time, the client does not indicate any symptoms associated with coronavirus-19. Ebola Screen: Patient negative for fever greater than or equal to 101.5 degrees Fahrenheit, and additional compatible Ebola Virus Disease symptoms Patient denies exposure to infectious person. Patient denies travel to an Ebola-affected area in the 21 days before illness onset. No symptoms or risks identified at this time. Initial Sepsis Screen: Does the patient meet any 2 criteria? No. Patient's initial sepsis screen is negative. Does the patient have a suspected source of infection? No. Patient's initial sepsis screen is negative. Risk Assessment: Do you want to hurt yourself or someone else? Patient reports no desire to harm self or others. Onset of symptoms was February 28, 2023. 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 - Social history:: Smoking status: . Screenin:00 [facility] ED Fall Risk Assessment (Adult) Score/Fall Risk Level 0 - 2 = Low Risk. Abuse eh3 screen: Denies threats or abuse. Denies injuries from another. Nutritional screening: No deficits noted. Tuberculosis screening: No symptoms or risk factors identified. Assessment: 14:00 General: Appears in no apparent distress. uncomfortable, Behavior is calm, cooperative, eh3 appropriate for age. Pain: Complains of pain in left flank. Neuro: Level of Consciousness is awake, alert, obeys commands, Oriented to person, place, time, situation. Cardiovascular: Capillary refill < 3 seconds Patient's skin is warm and dry. Respiratory: Airway is patent Respiratory effort is even, unlabored, Respiratory pattern is regular, symmetrical. GI: Abdomen is round non-distended, Reports nausea. : No signs and/or symptoms were reported regarding the genitourinary system. EENT: No signs and/or symptoms were reported regarding the EENT system. Derm: Skin is pink, warm \T\ dry. Musculoskeletal: Circulation, motion, and sensation intact. Range of motion: intact in all extremities. 15:00 Reassessment: Patient appears in no apparent distress at this time. Patient and/or 3 family updated on plan of care and expected duration. Pain level reassessed. Patient is alert, oriented x 3, equal unlabored respirations, skin warm/dry/pink. Patient states symptoms have improved. 16:00 Reassessment: Patient appears in no apparent distress at this time. Patient and/or eh3 family updated on plan of care and expected duration. Pain level reassessed. Patient is alert, oriented x 3, equal unlabored respirations, skin warm/dry/pink. Vital Signs: 13:53 BP 116 / 77; Pulse 80; Resp 16; Temp 97.5; Pulse Ox 100% on R/A; Weight 56.7 kg; Height iw 4 ft. 9 in. ; Pain 7/10; 15:00 BP 106 / 72; Pulse 78; Resp 16; Pulse Ox 99% on R/A; eh3 16:00 BP 106 / 74; Pulse 82; Resp 16; Pulse Ox 100% on R/A; eh3 13:53 Body Mass Index 27.05 (56.70 kg, 144.78 cm) iw 13:53 Pain Scale: Adult iw ED Course: 13:38 Patient arrived in ED. rg4 13:44 Susannah Kim FNP [facility]. jh7 13:44 Debra Barraaz MD is Attending Physician. jh7 13:54 Triage completed. iw 13:55 Arm band placed on Patient placed. iw 13:57 Monet Rosas, RN is Primary Nurse. eh3 14:00 Patient has correct armband on for positive identification. Bed in low position. Call 3 light in reach. Side rails up X2. Pulse ox on. NIBP on. Door closed. Noise minimized. Lights dimmed. Warm blanket given. 14:15 Inserted saline lock: 22 gauge in right antecubital area, using aseptic technique. eh3 Blood collected. 14:52 CT Abd/Pelvis - IV Contrast Only In Process Unspecified. EDMS 15:59 US Abdomen Limited In Process Unspecified. EDMS 16:33 Josemanuel Simon MD is Referral Physician. [facility] 16:51 No provider procedures requiring assistance completed. IV discontinued, intact, eh3 bleeding controlled, No redness/swelling at site. Pressure dressing applied. Administered Medications: 14:15 Drug: NS 0.9% IV 1000 ml Route: IV; Rate: 1 bolus; Site: right antecubital; 3 15:30 Follow up: IV Status: Completed infusion; IV Intake: 1000ml 3 14:15 Drug: Ondansetron IVP 4 mg Route: IVP; Site: right antecubital; eh3 15:00 Follow up: Response: No adverse reaction 3 14:15 Drug: morphine IVP or IV 4 mg Route: IVP; Infused Over: 4 mins; Site: right antecubital;eh3 15:00 Follow up: Response: Pain is decreased 3 Medication: 16:51 VIS not applicable for this client. eh3 Intake: 15:30 IV: 1000ml; Total: 1000ml. 3 Outcome: 16:33 Discharge ordered by . [facility] 16:52 Discharged to home ambulatory, with family. 3 16:52 Condition: stable 16:52 Discharge instructions given to patient, family, Instructed on discharge instructions, follow up and referral plans. medication usage, Demonstrated understanding of instructions, follow-up care, medications, Prescriptions given X 4. 16:52 Patient left the ED. 3 Signatures: Dispatcher [employer] EDMS Basia Morales, RN Nara Lobato4 Monet Rosas RN RN 3 Susannah Kim, ADMINISTRATOR ADMINISTRATOR 7
[2023-03-01 17:03] VITALS: TEMP 97.5
[2023-03-01 17:19] VITALS: BP 106/74; O2SAT 100
== END 2023-03-01 16:52 | disposition home or self-care (01) ==
LOC: ER 13:37 → SUPCPDRO 13:37 → ER 16:52
DX: K81.0 Acute cholecystitis (principal); Z88.0 Allergy status to penicillin
CPT/HCPCS: 85025; 81001; 36415; 81025; 83690; 80053; 74177; 76705; Q9967; J2405; J7030

== ENCOUNTER 2023-03-04 09:29 | Day surgery (SDC) | payer BC ==
[2023-03-04 10:15] LABS: ALT/SGPT 46 U/L (13-56); AST/SGOT 23 U/L (15-37); Albumin 3.3 g/dL (3.4-5.0); Alkaline Phosphatase 100 U/L (45-117); Bilirubin Direct < 0.1 mg/dL (0-0.2); Bilirubin Indirect, Calculated ND mg/dL (0.2-0.8); Bilirubin Total 0.2 mg/dL (0.2-1.0); Lipase 51 U/L (13-75)
[2023-03-04] MEDS ORDERED: Ringers Lactate 1,000 ML IV ONE (11:05)
[2023-03-04] MEDS ORDERED: propofoL 200 MG/20 ML VIAL IV ONE (12:32)
[2023-03-04] MEDS ORDERED: FENTANYL CITR 100 MCG/2 ML ONE (12:32)
[2023-03-04] MEDS ORDERED: MIDAZOLAM HCL 2 MG/2 ML INJ ONE (12:33)
[2023-03-04] MEDS ORDERED: ROCURONIUM 50 MG/5 ML VIAL IV ONE (12:35)
[2023-03-04] MEDS ORDERED: ONDANSETRON 4 MG/2 ML VIAL ONE (12:35)
[2023-03-04] MEDS ORDERED: LIDOCAINE 2% MPF 5 ML VIAL ONE (12:35)
[2023-03-04] MEDS ORDERED: CIPROFLOXACIN 400mg IV 400 MG/200 ML BAG IV ONE (13:03)
--- NOTE | 2023-03-04 13:42 | P.BOP ---
Preoperative diagnosis: Acute cholecystitis, symptomatic cholelithiasis Postoperative diagnosis: same Primary procedure: Laparoscopic cholecystectomy Treating Plant Supervisor: Cheyanne Coreas (Karo) Estimated blood loss: <10cc Specimen: gb Findings: as above Anesthesia: General Complications: None Transferred to: Recovery Room Condition: Good
[2023-03-04] MEDS ORDERED: NEOSTIGMINE 1 MG/ML -10 ML VIAL ONE (13:55)
[2023-03-04] MEDS ORDERED: GLYCOPYRROLATE 0.2 MG/ML SYR ONE ×2 (13:55→14:49)
[2023-03-04 14:03] VITALS: O2SAT 100
[2023-03-04 14:26] VITALS: TEMP 98
[2023-03-04] MEDS ORDERED: HYDROCODONE/APAP 7.5/325 MG TAB ONE (15:32)
[2023-03-04 15:54] VITALS: BP 105/67
--- NOTE | 2023-03-04 20:29 | OP ---
Date of Procedure: 03/04/2023 Surgeon: Reynaldo Malloy MD Head Golf Coach: RUBEN Gottlieb. Preoperative Diagnoses: Acute cholecystitis, symptomatic cholelithiasis. Postoperative Diagnoses: Acute cholecystitis, symptomatic cholelithiasis. Procedure: Laparoscopic cholecystectomy. Estimated Blood Loss: Less than 10 cc. Specimen: Gallbladder. Anesthesia: General plus local. Indications: This is the case of a 27-year-old patient who comes to us with above diagnoses with acu te right upper quadrant abdominal pain. Fully explained the benefits, alternatives, and risks of lap aroscopic possible open cholecystectomy which include, but are not limited to infection, bleeding, da mage to adjacent structures, anesthesia complication, choledocholithiasis, bile leak, pancreatitis, M I, and even . She also understands this may not relieve the symptoms and she might need more th an one surgical intervention. She understood, signed a consent. Procedure In Detail: The patient was brought to the operating room and placed in supine position. A nesthesia was done without complication. Abdominal area was prepped and draped in usual sterile fash ion. Marcaine 0.5% was injected for local anesthetic followed by sharp incision of the skin in the i nfraumbilical region. Incision was carried down to fascia, which was opened under direct vision. Pe ritoneum was encountered and opened under direct vision. Vicryl #1 placed inside the fascia. Lorna trocar was carefully introduced. Pneumoperitoneum was obtained. I placed 3 more trocars, 5 mm each one of them in the epigastric and right upper quadrant area under direct visualization. This allowe d me to put a grasper in the fundus of the gallbladder and another grasper in the infundibulum and re tracted the gallbladder in the inferolateral fashion exposing the triangle of Calot and obtaining cri tical view. Cystic duct and cystic artery were clearly isolated and freed circumferentially and a co nnection between those and the gallbladder were clearly identified. I proceeded to ligate those by u sing at least 3 clips proximal, 1 clip distal, and ligation in middle. Same was done with the cystic artery. No bile leak. No bleeding. The gallbladder was removed from liver using Bovie cauterizer and removed from abdominal cavity using Endo Catch through the umbilical incision. The area was insp ected once again. No bile leak. No bleeding. At that moment, I proceeded to remove the trocars und er direct vision, deflated pneumoperitoneum, closed the fascia with #1 Vicryl, irrigated subcutaneous tissue and closed that with 3-0 chromic and skin in a subcuticular fashion with 3-0 chromic and Ster i-Strips on top. Sponge count and instrument counts correct. The patient tolerated the procedure we ll. The patient was sent to recovery in stable condition. ANA/ROCIO Voice ID: [id number] Report ID: [id number]
--- NOTE | 2023-03-04 20:29 | DS ---
Date of Discharge: 03/04/2023 Diagnoses: Acute cholecystitis, symptomatic cholelithiasis. Procedure: Laparoscopic cholecystectomy. Disposition: Home. Activity: As tolerated, no heavy lifting. Follow Up: In my office in 1 week, call for appointment [phone]. Keep area dry for 48 hours then ma y shower. Keep Steri-Strips intact. ANA/ROCIO Voice ID: [id number] Report ID: [id number]
== END 2023-03-04 15:45 | disposition home or self-care (01) ==
LOC: OR 09:29
PROVIDERS: ATTEND Surgery
PROC: 0FT44ZZ Resection of Gallbladder, Percutaneous Endoscopic Approach (ICD-10-PCS; principal; 2023-03-04 12:30)
DX: K80.12 Calculus of gallbladder with acute and chronic cholecystitis without obstruction (principal); F32.A Depression, unspecified; Z79.899 Other long term (current) drug therapy; Z88.0 Allergy status to penicillin
CPT/HCPCS: 36415; 81025; 80076; 88304; 83690; 47562; J2704; J2710; J2001; J2250; J3010; J2405; J0744; J7120